=== PATIENT | male | born 1955 | race Caucasian/White ===

== ENCOUNTER 2020-07-20 10:15 | Outpatient (REF) | payer MEDICARE, OTHER, SELFPAY ==
--- NOTE | 2020-07-20 | US_ITS ---
EXAMINATION: RENAL DOPPLER EXAM CLINICAL INFORMATION: Hyperlipidemia. Chronic kidney disease stage III. COMPARISON: Previous renal ultrasound 06/13/2020 TECHNIQUE: Doppler color and grayscale evaluation of the renal arteries, renal veins and upper abdominal aorta FINDINGS: The abdominal aorta is normal in caliber. Aortic peak systolic velocity is normal measuring 98 cm/s. Renal artery peak systolic velocity measures 196 cm/s proximally, 145 cm/s the midportion and 79 cm/s distally. Right renal artery to aorta ratio is 2. Resistive indices in the right kidney measure between 0.6 and 0.7. The right renal vein is patent. Left renal artery peak systolic velocity measures 117 cm/s proximally, 242 cm/s the midportion and 131 cm/s distally. Left renal artery to aorta ratio is 2.5. Resistive indices in the left kidney measure 0.7. The left renal vein is patent. There are left renal peripelvic cysts. IMPRESSION: Elevated bilateral renal artery peak systolic velocities suggestive of less than 60% renal artery stenosis, left greater than right.
== END 2020-07-20 10:16 | disposition home or self-care (01) ==
LOC: HO.US 10:15
PROVIDERS: PCP Internal Medicine Nephrology; Visit Provider Internal Medicine Nephrology
DX: E78.5 Hyperlipidemia, unspecified (principal); N18.30 Chronic kidney disease, stage 3 unspecified
CPT/HCPCS: 93975

== ENCOUNTER 2020-11-27 09:32 | Outpatient (REF) | payer MEDICARE, OTHER, SELFPAY ==
[2020-11-27 09:59] LABS: MANUAL DIFF FLAG NO
[2020-11-27 10:01] LABS: Basophils Absolute Auto 0.1 X10*3/uL (0.0-0.2); Basophils Percent Auto 1.1 % (0-2); Eosinophils Absolute Auto 0.2 X10*3/uL (0.0-0.4); Eosinophils Percent Auto 4.3 % (0-4); Hematocrit 53.3 % (42-52); Hemoglobin 17.5 g/dl (14.0-18.0); Imm Gran Abs Auto 0.02 X10*3/uL (0.00-0.03); Imm Gran Pct Auto 0.4 % (0.0-0.4); Lymphocytes Absolute Auto 1.4 X10*3/uL (1.2-4.9); Lymphocytes Percent Auto 26.9 % (20-40); Mean Corpuscular HGB Conc 32.8 g/dl (31.0-36.0); Mean Corpuscular Volume 91.4 fL (80-98); Mean Platelet Volume 10.1 fL (9.4-12.4); Monocytes Absolute Auto 0.6 X10*3/uL (0.1-1.2); Monocytes Percent Auto 10.9 % (2-11); Neutrophils Percent Auto 56.4 % (45-73); Platelet Count 173 X10*3/uL (160-400); Red Blood Count 5.83 X10*6/uL (4.60-5.80); Red Cell Distribution Width 12.2 % (11.0-16.0); White Blood Count 5.3 X10*3/uL (4.8-10.8)
[2020-11-27 10:24] LABS: Alanine Aminotransferase 26 U/L (0-40); Albumin Level 4.3 g/dL (3.5-5.0); Alkaline Phosphatase 59 U/L (39-117); Anion Gap 11 (12-20); Aspartate Amino Transferase 22 U/L (5-37); Bilirubin Total 1.4 mg/dL (0.0-1.0); Blood Urea Nitrogen 25 mg/dL (9-16); Calcium 9.3 mg/dL (8.4-10.2); Carbon Dioxide 32 mmol/L (22-29); Chloride 103 mmol/L (96-108); Cholesterol 148 mg/dL; Estimated Glomerular Filt Rate 48; Glucose Fasting 104 mg/dL (60-99); HDL Cholesterol 56 mg/dL; LDL Cholesterol Calculated 78 mg/dl; Potassium 4.5 mmol/L (3.3-5.1); Sodium 141 mmol/L (135-145); Total Protein 6.5 g/dL (6.5-8.0); Triglycerides 72 mg/dL
[2020-11-27 10:45] LABS: Thyroid Stimulating Hormone 4.06 uIU/mL (0.32-4.0)
== END 2020-11-27 09:33 | disposition home or self-care (01) ==
LOC: HO.LAB 09:32
PROVIDERS: PCP Internal Medicine; Visit Provider Internal Medicine
DX: Z00.00 Encounter for general adult medical examination without abnormal findings (principal); E11.9 Type 2 diabetes mellitus without complications; E03.9 Hypothyroidism, unspecified
CPT/HCPCS: 36415; 80053; 80061; 84443; 85025

== ENCOUNTER 2021-05-23 11:11 | Outpatient (REF) | payer MEDICARE, OTHER, SELFPAY ==
[2021-05-23 12:09] LABS: Cholesterol 121 mg/dL; Glucose Fasting 100 mg/dL (60-99); HDL Cholesterol 49 mg/dL; LDL Cholesterol Calculated 63 mg/dl; Triglycerides 48 mg/dL
[2021-05-23 12:43] LABS: Estimated Average Glucose 120 mg/dL; Hemoglobin A1c % 5.8 %
== END 2021-05-23 11:12 | disposition home or self-care (01) ==
LOC: HO.LAB 11:11
PROVIDERS: PCP Internal Medicine; Visit Provider Internal Medicine
DX: E11.65 Type 2 diabetes mellitus with hyperglycemia (principal)
CPT/HCPCS: 36415; 80061; 82947; 83036

== ENCOUNTER 2021-11-23 11:05 | Outpatient (REF) | payer MEDICARE, OTHER, SELFPAY ==
[2021-11-23 11:36] LABS: MANUAL DIFF FLAG NO
[2021-11-23 12:04] LABS: Basophils Absolute Auto 0.1 X10*3/uL (0.0-0.2); Basophils Percent Auto 1.2 % (0-2); Eosinophils Absolute Auto 0.3 X10*3/uL (0.0-0.4); Eosinophils Percent Auto 5.1 % (0-4); Hematocrit 51.1 % (42.0-52.0); Hemoglobin 16.9 g/dl (14.0-18.0); Imm Gran Abs Auto 0.02 X10*3/uL (0.00-0.03); Imm Gran Pct Auto 0.3 % (0.0-0.4); Lymphocytes Absolute Auto 1.3 X10*3/uL (1.2-4.9); Lymphocytes Percent Auto 22.1 % (20-40); Mean Corpuscular HGB Conc 33.1 g/dl (31.0-36.0); Mean Corpuscular Volume 90.6 fL (80.0-98.0); Mean Platelet Volume 10.2 fL (9.4-12.4); Monocytes Absolute Auto 0.6 X10*3/uL (0.1-1.2); Monocytes Percent Auto 10.4 % (2-11); Neutrophils Absolute Auto 3.7 x10*3/uL (2.0-8.3); Neutrophils Percent Auto 60.9 % (45-73); Platelet Count 162 X10*3/uL (160-400); Red Blood Count 5.64 X10*6/uL (4.60-5.80); Red Cell Distribution Width 12.4 % (11.0-16.0); White Blood Count 6.1 X10*3/uL (4.8-10.8)
[2021-11-23 12:34] LABS: Alanine Aminotransferase 26 U/L (0-40); Albumin Level 4.2 g/dL (3.5-5.0); Alkaline Phosphatase 67 U/L (39-117); Anion Gap 10 (12-20); Aspartate Amino Transferase 20 U/L (5-37); Bilirubin Total 1.2 mg/dL (0.0-1.0); Blood Urea Nitrogen 21 mg/dL (9-16); Calcium 9.7 mg/dL (8.4-10.2); Carbon Dioxide 30 mmol/L (22-29); Chloride 103 mmol/L (96-108); Cholesterol 152 mg/dL; Estimated Glomerular Filt Rate 47; Glucose Fasting 96 mg/dL (60-99); HDL Cholesterol 46 mg/dL; LDL Cholesterol Calculated 90 mg/dl; Potassium 4.4 mmol/L (3.3-5.1); Sodium 139 mmol/L (135-145); Total Protein 6.5 g/dL (6.5-8.0); Triglycerides 83 mg/dL
[2021-11-23 12:58] LABS: Prostate Specific Antigen Scr 3.96 ng/mL (<0.05-4.0)
== END 2021-11-23 11:06 | disposition home or self-care (01) ==
LOC: HO.LAB 11:05
PROVIDERS: PCP Internal Medicine; Visit Provider Internal Medicine
DX: Z00.00 Encounter for general adult medical examination without abnormal findings (principal); Z13.0 Encounter for screening for diseases of the blood and blood-forming organs and certain disorders involving the immune mechanism; Z12.5 Encounter for screening for malignant neoplasm of prostate
CPT/HCPCS: 36415; 80053; 80061; 84153; 85025

== ENCOUNTER 2022-05-13 10:07 | Outpatient (REF) | payer MEDICARE, OTHER, SELFPAY ==
[2022-05-13 10:24] LABS: MANUAL DIFF FLAG NO
[2022-05-13 11:00] LABS: Basophils Absolute Auto 0.1 X10*3/uL (0.0-0.2); Basophils Percent Auto 1.2 % (0-2); Eosinophils Absolute Auto 0.3 X10*3/uL (0.0-0.4); Eosinophils Percent Auto 5.3 % (0-4); Hematocrit 49.2 % (42.0-52.0); Hemoglobin 16.4 g/dl (14.0-18.0); Imm Gran Abs Auto 0.01 X10*3/uL (0.00-0.03); Imm Gran Pct Auto 0.2 % (0.0-0.4); Lymphocytes Absolute Auto 1.2 X10*3/uL (1.2-4.9); Lymphocytes Percent Auto 24.1 % (20-40); Mean Corpuscular HGB Conc 33.3 g/dl (31.0-36.0); Mean Corpuscular Hemoglobin 30.3 pg (27.0-33.0); Mean Corpuscular Volume 90.9 fL (80.0-98.0); Mean Platelet Volume 10.2 fL (9.4-12.4); Monocytes Absolute Auto 0.5 X10*3/uL (0.1-1.2); Monocytes Percent Auto 10.2 % (2-11); Neutrophils Absolute Auto 2.9 x10*3/uL (2.0-8.3); Platelet Count 150 X10*3/uL (160-400); Red Blood Count 5.41 X10*6/uL (4.60-5.80); Red Cell Distribution Width 12.5 % (11.0-16.0); White Blood Count 4.9 X10*3/uL (4.8-10.8)
[2022-05-13 11:37] LABS: Alanine Aminotransferase 20 U/L (0-40); Albumin Level 4.1 g/dL (3.5-5.0); Alkaline Phosphatase 57 U/L (39-117); Anion Gap 12 (12-20); Aspartate Amino Transferase 20 U/L (5-37); Bilirubin Total 1.6 mg/dL (0.0-1.0); Blood Urea Nitrogen 23 mg/dL (9-16); Calcium 8.8 mg/dL (8.4-10.2); Carbon Dioxide 28 mmol/L (22-29); Chloride 105 mmol/L (96-108); Cholesterol 122 mg/dL; Estimated Glomerular Filt Rate 46; Glucose Fasting 91 mg/dL (60-99); HDL Cholesterol 51 mg/dL; LDL Cholesterol Calculated 62 mg/dl; Potassium 4.2 mmol/L (3.3-5.1); Sodium 141 mmol/L (135-145); Total Protein 6.1 g/dL (6.5-8.0); Triglycerides 46 mg/dL
== END 2022-05-13 10:08 | disposition home or self-care (01) ==
LOC: HO.LAB 10:07
PROVIDERS: PCP Internal Medicine; Visit Provider Internal Medicine
DX: Z00.00 Encounter for general adult medical examination without abnormal findings (principal); Z13.0 Encounter for screening for diseases of the blood and blood-forming organs and certain disorders involving the immune mechanism; Z12.5 Encounter for screening for malignant neoplasm of prostate; E78.5 Hyperlipidemia, unspecified; I10 Essential (primary) hypertension
CPT/HCPCS: 36415; 80053; 80061; 84153; 85025

== ENCOUNTER 2022-05-17 10:55 | Outpatient (REF) | payer MEDICARE, OTHER, SELFPAY ==
[2022-05-17 13:10] LABS: Prostate Specific Antigen Scr 4.13 ng/mL (<0.05-4.0)
== END 2022-05-17 10:56 | disposition home or self-care (01) ==
LOC: HO.LAB 10:55
PROVIDERS: PCP Internal Medicine; Visit Provider Internal Medicine
DX: Z12.5 Encounter for screening for malignant neoplasm of prostate (principal)
CPT/HCPCS: 36415; 84153

== ENCOUNTER 2022-06-13 11:40 | Outpatient (REF) | payer MEDICARE, OTHER, SELFPAY ==
--- NOTE | ~2022-06-13 | XR_ITS ---
EXAMINATION: XR CHEST CLINICAL INFORMATION: Cough. COMPARISON: None TECHNIQUE: 2 views of the chest were obtained. FINDINGS: No significant abnormality is noted involving the heart, lungs, mediastinum, bony thorax or soft tissues. XR/XR chest 2V IMPRESSION: No acute cardiopulmonary process.
== END 2022-06-13 11:41 | disposition home or self-care (01) ==
LOC: HO.HMGCX 11:40
PROVIDERS: PCP Internal Medicine
DX: R05.9 Cough, unspecified (principal)
CPT/HCPCS: 71046

== ENCOUNTER 2022-10-16 14:03 | Outpatient (REF) | payer MEDICARE, OTHER, SELFPAY ==
[2022-10-16 15:53] LABS: Urine Cytology See Pathology rpt
[2022-10-16 16:47] LABS: PSA,Total (Free>4and<10) 4.83 ng/mL (0.00-4.00); Prostate Specific Antigen 4.79 ng/mL (<0.05-4.0)
[2022-10-17 11:34] LABS: Free Prostate Spec Ag 1.1 ng/mL; Percent Free Prostate Spec Ag 24 % (calc) (>25); Prostate Specific Ag Total 4.6 ng/mL (< OR = 4.0)
== END 2022-10-16 14:04 | disposition home or self-care (01) ==
LOC: HO.LAB 14:03
PROVIDERS: PCP Internal Medicine; Visit Provider Nurse Practitioner Family
DX: R97.20 Elevated prostate specific antigen [PSA] (principal); N40.0 Benign prostatic hyperplasia without lower urinary tract symptoms; R35.1 Nocturia; Z79.899 Other long term (current) drug therapy; Z12.5 Encounter for screening for malignant neoplasm of prostate
CPT/HCPCS: 36415; 84153; 84154; 88112; 99202

== ENCOUNTER 2022-10-25 07:05 | Day surgery (SDC) | payer MEDICARE, OTHER, SELFPAY ==
--- NOTE | 2022-10-24 10:20 | HO.ANESPROP2 ---
Documented by User: Cynthia Ling NP 10/24/22 10:24 HPI - Anesthesia Eval Consult details Narrative: 67yo M for Colonoscopy PMFSH Active Problems Active Problems: All Active Problems (Updated 10/24/22 @ 06:26 by Miriam Leon RN) Elevated PSA (Acute) Discomfort of right ear (Acute) Nocturia (Acute) BPH (benign prostatic hyperplasia) (Acute) Hyperlipidemia (Acute) Past Medical History Medical History (Updated 10/24/22 @ 06:26 by Miriam Leon RN) BPH (benign prostatic hyperplasia) Elevated PSA GERD (gastroesophageal reflux disease) Hx of chronic kidney disease Hyperlipidemia Family History Family History Mother Acute arthritis Father No problems noted. Surgical History Surgical History (Updated 10/24/22 @ 06:26 by Miriam Leon RN) History of hernia surgery History of left knee replacement Hx of colonoscopy Hx of esophagogastroduodenoscopy Social History Social History Housing: House Alcohol intake: current Alcohol intake frequency: a few times a week Alcohol type: beer Patient Tobacco Use Status: Never used Tobacco e-Cigarette/Vaping Use: Never Used Second Hand Smoke Exposure: No Use of substances other than those prescribed or required for medical reasons: No Are you DNR?: No Advance Directives: No Advance Directives Information Provided: Yes service: No Current occupational status: retired Cognitive needs: No Hearing needs: No Vision needs: No Meds Allergies Allergy/AdvReac Type Severity Reaction Status Date / Time No Known Allergies Allergy Verified 10/16/22 17:26 Exam Exam Date and Time: October 24, 2022 1020 Pertinent Lab Results Pertinent Lab Results: Laboratory Tests 05/13/22 05/13/22 10:22 10:22 WBC 4.9 Hgb 16.4 Hct 49.2 Plt Count 150 L Sodium 141 Potassium 4.2 Chloride 105 Carbon Dioxide 28 BUN 23 H Creatinine 1.51 H Documented by User: Keri Dumont MD 10/25/22 07:50 PMFSH Past Medical History Medical History (Updated 10/24/22 @ 06:26 by Miriam Leon, RN) BPH (benign prostatic hyperplasia) Elevated PSA GERD (gastroesophageal reflux disease) Hx of chronic kidney disease Hyperlipidemia Family History Family History Mother Acute arthritis Father No problems noted. Family history of problems with anesthesia: No Surgical History Surgical History (Updated 10/24/22 @ 06:26 by Miriam Leon RN) History of hernia surgery History of left knee replacement Hx of colonoscopy Hx of esophagogastroduodenoscopy History of Problems with Anesthesia: No Social History Social History Housing: House Alcohol intake: current Alcohol intake frequency: a few times a week Alcohol type: beer Patient Tobacco Use Status: Never used Tobacco e-Cigarette/Vaping Use: Never Used Second Hand Smoke Exposure: No Use of substances other than those prescribed or required for medical reasons: No Are you DNR?: No Advance Directives: No Advance Directives Information Provided: Yes service: No Current occupational status: retired Cognitive needs: No Hearing needs: No Vision needs: No Meds Allergies Allergy/AdvReac Type Severity Reaction Status Date / Time No Known Allergies Allergy Verified 10/16/22 17:26 Exam Airway Mallampati Class: II TM Dist: >3cm Neck ROM: Full Heart: rrr Lungs: cta Assessment and Plan Assessment Anesthesia Assessment: Anesthesia Plan Discussed and Chart Reviewed Final Anesthetic Review Family History of Problems with Anesthesia: No History of Problems with Anesthesia: No NPO: Yes ASA Class: II Final Preanesthetic Review: No Changes in Pt Med Stat, Meds/Allgs Chart Reviewed, Consent Obtained/Reviewed and Anes Risks/Benef Reviewed Patient Risk: Low Procedure Risk: Low Anesthetic Plan Anesthetic Plan: MAC: and Agree w/ Assess. and Plan Disposition: Standard PACU
[2022-10-25 07:27] VITALS: BP 129/84; PULSE 58; RESP 18; TEMP 36.1; O2SAT 99; BMI 23.4
[2022-10-25] MEDS: Lactated Ringers 1,000 ML 100 ML IVCONT (07:48)
--- NOTE | 2022-10-25 08:10 | MHC.SHP ---
Pre-Procedural Eval Section A Date of Service: 10/25/22 Section B Chief Complaint: screening Details of Present Illness: see H*P no changes Relevant Family History (Specify if Yes): No Relevant Social History: None Present Medications: see Short Stay Collaborative assessment Medical History: No relevant PMH History of Previous Operations: No relevant previous surgery Allergies: Allergies Allergy/AdvReac Type Severity Reaction Status Date / Time No Known Allergies Allergy Verified 10/16/22 17:26 Review of Systems Sugical H&P ROS: Negative: Constitution, Cardiovascular, Respiratory, Neurological, Psychiatric, Hem-Onc, Allergic/Immunologic, Gastrointestinal, Genitourinary, Musculoskeletal, Integumentary, Endocrine and Eyes/Ears/Nose/Throat Exam Surgical H&P Exam: Normal: HEENT, Normal: Heart, Normal: Lungs, Normal: Extremities, Normal: Abdomen, Normal: Skin and Normal: Neurological Plan Diagnosis/Plan: Unchanged I have reviewed the history and physical and performed a pertinent physical examination on my patient. No changes have occurred unless specified. Time Spent With Patient Time: Total time managing care of this patient today ____ minutes.
[2022-10-25 08:38] VITALS: BP 93/58; PULSE 56; RESP 16; TEMP 36.8; O2SAT 95
--- NOTE | 2022-10-25 08:38 | PM.OP ---
Brief Operative Note Date of Service: 10/25/22 Pre-op diagnosis: screening Post-op diagnosis: same Procedure: colonoscopy Surgeon: Tae Art Anesthesia: MAC Was an Popped Corn Oven Attendant used for this Procedure?: No Estimated blood loss (mL): 0 Pathology: none sent Condition: stable Disposition: PACU
[2022-10-25 08:53] VITALS: BP 122/92; PULSE 57; RESP 16; TEMP 36.8; O2SAT 96
--- NOTE | 2022-10-25 08:58 | OP_ITS ---
SURGEON: Tae Art MD INDICATIONS: Colon cancer screening and prior history of adenomatous colon polyps. PREOPERATIVE DIAGNOSIS: POSTOPERATIVE DIAGNOSIS: PROCEDURE PERFORMED: Colonoscopy to the terminal ileum. ESTIMATED BLOOD LOSS: COMPLICATIONS: ANESTHESIA: Monitored anesthesia care. ASSISTANTS: SPECIMENS: DESCRIPTION OF PROCEDURE: Date: 10/25/22. A history and physical were performed. The risks and benefits of the procedure were explained to the patient. Informed consent was obtained. The patient was placed in the left lateral decubitus position. A digital rectal exam was performed and was found to be normal. The Olympus pediatric video colonoscope was introduced into the rectum and advanced to the cecum without difficulty. The cecum was identified by transillumination, palpation, and identification of ileocecal valve. Examination was performed. The scope was removed. He tolerated the procedure well and was taken to recovery in stable condition. FINDINGS: The terminal ileum was normal. Visualized colonic mucosa was normal. The quality of the prep was good. No polyps were identified. There was mild sigmoid diverticulosis. Retroflexed examination showed small internal hemorrhoids. IMPRESSION: Normal colonoscopy. RECOMMENDATIONS: 1. Follow up as needed. 2. Repeat colonoscopy is recommended in 10 years for average risk individuals. MD LINDA Fan/RYAN / [phone] MTDTomasa
== END 2022-10-25 10:00 | disposition home or self-care (01) ==
PROVIDERS: PCP Internal Medicine; Visit Provider Internal Medicine Gastroenterology
PROC: 0DJD8ZZ Inspection of Lower Intestinal Tract, Via Natural or Artificial Opening Endoscopic (ICD-10-PCS; CPT 45378; principal; 2022-10-25 08:10)
DX: Z12.11 Encounter for screening for malignant neoplasm of colon (principal); Z86.010 Personal history of colon polyps; K57.30 Diverticulosis of large intestine without perforation or abscess without bleeding; K64.8 Other hemorrhoids; K22.2 Esophageal obstruction; K21.9 Gastro-esophageal reflux disease without esophagitis; N18.9 Chronic kidney disease, unspecified; E78.00 Pure hypercholesterolemia, unspecified; R97.20 Elevated prostate specific antigen [PSA]; Z79.899 Other long term (current) drug therapy
CPT/HCPCS: G0105

== ENCOUNTER 2022-11-18 10:10 | Outpatient (REF) | payer MEDICARE, OTHER, SELFPAY ==
[2022-11-18 10:22] LABS: MANUAL DIFF FLAG NO
[2022-11-18 11:42] LABS: Basophils Absolute Auto 0.1 X10*3/uL (0.0-0.2); Basophils Percent Auto 1.4 % (0-2); Eosinophils Absolute Auto 0.3 X10*3/uL (0.0-0.4); Eosinophils Percent Auto 4.4 % (0-4); Hematocrit 50.6 % (42.0-52.0); Hemoglobin 16.7 g/dl (14.0-18.0); Imm Gran Abs Auto 0.03 X10*3/uL (0.00-0.03); Imm Gran Pct Auto 0.5 % (0.0-0.4); Lymphocytes Absolute Auto 1.2 X10*3/uL (1.2-4.9); Lymphocytes Percent Auto 21.8 % (20-40); Mean Corpuscular Hemoglobin 30.1 pg (27.0-33.0); Mean Corpuscular Volume 91.2 fL (80.0-98.0); Mean Platelet Volume 10.4 fL (9.4-12.4); Monocytes Absolute Auto 0.6 X10*3/uL (0.1-1.2); Monocytes Percent Auto 10.7 % (2-11); Neutrophils Absolute Auto 3.5 x10*3/uL (2.0-8.3); Neutrophils Percent Auto 61.2 % (45-73); Platelet Count 148 X10*3/uL (160-400); Red Blood Count 5.55 X10*6/uL (4.60-5.80); Red Cell Distribution Width 12.1 % (11.0-16.0); White Blood Count 5.7 X10*3/uL (4.8-10.8)
[2022-11-18 12:25] LABS: Alanine Aminotransferase 32 U/L (0-40); Albumin Level 4.1 g/dL (3.5-5.0); Alkaline Phosphatase 77 U/L (39-117); Anion Gap 14 (12-20); Aspartate Amino Transferase 26 U/L (5-37); Bilirubin Total 0.9 mg/dL (0.0-1.0); Blood Urea Nitrogen 20 mg/dL (9-16); Calcium 9.3 mg/dL (8.4-10.2); Carbon Dioxide 28 mmol/L (22-29); Chloride 104 mmol/L (96-108); Cholesterol 151 mg/dL; Estimated Glomerular Filt Rate 48; Glucose Fasting 102 mg/dL (60-99); HDL Cholesterol 55 mg/dL; LDL Cholesterol Calculated 84 mg/dl; Potassium 4.6 mmol/L (3.3-5.1); Sodium 141 mmol/L (135-145); Triglycerides 63 mg/dL
== END 2022-11-18 10:11 | disposition home or self-care (01) ==
LOC: HO.LAB 10:10
PROVIDERS: PCP Internal Medicine; Visit Provider Internal Medicine
DX: E78.5 Hyperlipidemia, unspecified (principal); N28.9 Disorder of kidney and ureter, unspecified; D64.9 Anemia, unspecified
CPT/HCPCS: 36415; 80053; 80061; 85025

== ENCOUNTER 2022-12-23 17:17 | Outpatient (REF) | payer MEDICARE, OTHER, SELFPAY ==
[2022-12-24 13:40] LABS: Influenza A PCR NEGATIVE (Negative); Influenza B PCR NEGATIVE (Negative); Resp Syncy Virus RNA Qual PCR NEGATIVE (Negative); SARS COV2 PCR INHOUSE NEGATIVE (Negative)
== END 2022-12-23 17:18 | disposition home or self-care (01) ==
LOC: HO.LAB 17:17
PROVIDERS: Visit Provider Nurse Practitioner Family
DX: J06.9 Acute upper respiratory infection, unspecified (principal); Z20.822 Contact with and (suspected) exposure to COVID-19
CPT/HCPCS: 0241U

== ENCOUNTER 2023-01-31 09:52 | Outpatient (REF) | payer MEDICARE, OTHER, SELFPAY ==
--- NOTE | ~2023-01-31 | US_ITS ---
EXAMINATION: US RETROPERITONEAL COMPLETE (RENAL) CLINICAL INFORMATION: Elevated prostate-specific antigen. COMPARISON: Renal Doppler ultrasound 07/20/2020. Renal ultrasound 06/13/2020. TECHNIQUE: Real-time imaging of the kidneys and bladder. FINDINGS: RIGHT KIDNEY: 10.2 x 4.3 x 5.8 cm (SAG x AP x TRV). The kidney is normal in size, contour, and echogenicity. Renal cortical thickness is normal. No renal calculi or hydronephrosis. Benign-appearing 6 mm simple cysts no follow-up imaging recommended. LEFT KIDNEY: 11.3 x 5.8 x 6.4 cm (SAG x AP x TRV). The kidney is normal in size, contour, and echogenicity. Renal cortical thickness is normal. No renal calculi or focal parenchymal lesions. Similar appearance of fullness of the left renal pelvis favored to reflect peripelvic renal cysts, not significantly changed, no routine follow up imaging recommended. BLADDER: Possibly minimally trabeculated urinary bladder. Bilateral ureteral jets are demonstrated. Prevoid bladder volume is 248 mL. Postvoid bladder volume is 22 mL. Enlarged prostate, volume 40 mL. US/US retroperitoneal comp IMPRESSION: 1. Possibly minimally trabeculated urinary bladder. 2. Prostatomegaly. 3. Similar appearance of fullness of the left renal pelvis favored to reflect peripelvic renal cysts, not significantly changed, no routine follow up imaging recommended.
== END 2023-01-31 09:53 | disposition home or self-care (01) ==
LOC: HO.US 09:52
PROVIDERS: PCP Internal Medicine; Visit Provider Nurse Practitioner Family
DX: R97.20 Elevated prostate specific antigen [PSA] (principal); N40.0 Benign prostatic hyperplasia without lower urinary tract symptoms; R35.1 Nocturia
CPT/HCPCS: 76770

== ENCOUNTER 2023-02-14 10:32 | Outpatient (AMB) | payer MEDICARE, OTHER, SELFPAY ==
--- NOTE | 2023-02-14 10:41 | A.OFFVIS_ITS ---
Intake Intake Visit Reasons: follow up/US(set) Intake Note: Patient is present for Follow Up Ultrasound Urology Med: Finasteride Antibiotic Allergy: None Blood Thinner: None Allergies No Known Allergies Allergy (Verified 06/18/23 09:21) Medication List - Last Reconciled 02/14/23 by Parth Nova MD dextromethorphan HBr 20 mg (15 mL) PO TID PRN 5 days famotidine (Pepcid) 20 mg PO DAILY finasteride 5 mg PO BEDTIME 90 days rosuvastatin 10 mg PO BEDTIME sodium fluoride-pot nitrate 1.1-5 % PO Q3D HPI HPI Comments History of Present Illness Details Michael is a pleasant male.? He is a patient of Dr. Escudero.? He seen for the following urologic conditions - elevated PSA Is being placed on finasteride for mild prostate elevation large prostate And concerns regarding medications These were addressed today To be seen in a couple months for review Elevated PSA Slow rise Discussed risk of prostate cancer No reported family history - father had enlarged prostate Willing to trial finasteride 12/04 4.0, 06/03 4.6, 11/04 4.6 24%, 05/04 2.9 Imaging 40 g prostate PFSH Medical History BPH (benign prostatic hyperplasia) Elevated PSA GERD (gastroesophageal reflux disease) Hx of chronic kidney disease Hyperlipidemia Surgical History History of hernia surgery History of left knee replacement Hx of colonoscopy Hx of esophagogastroduodenoscopy Family History Mother Acute arthritis Father No problems noted. Social History Housing: House Alcohol intake: current Alcohol intake frequency: a few times a week Alcohol type: beer Patient Tobacco Use Status: Never used Tobacco e-Cigarette/Vaping Use: Never Used Second Hand Smoke Exposure: No service: No Current occupational status: retired Cognitive needs: No Hearing needs: No Vision needs: No Review of Systems Const Denies chills and Denies fever(s) Card Reports no additional complaints and Denies syncope Resp Denies cough GI Denies abdominal pain and Denies heartburn Reports as per HPI and Denies change in libido Neuro Denies syncope Psych Denies change in libido Endo Denies change in libido Physical Exam Const General: cooperative, healthy appearing, comfortable and no acute distress Orientation/consciousness: patient oriented x3 HEENT Face and sinus: Yes normal facial exam Mouth: moist mucous membranes Neck Neck: Yes normal visual inspection, Yes full ROM and Yes trachea midline Chest Chest palpation & inspection: normal inspection of the chest Resp Effort & Inspection: normal respiratory effort, able to speak in complete sentences and no respiratory distress GI Inspection: Yes normal to inspection Back/Spine/Pelvis Cervical Spine: normal cervical lordosis Thoracic/Lumbar Spine: thoracic and lumbar spine normal to inspection Skin General skin exam: no rashes or lesions noted Neuro General: patient oriented x3, gait normal, tone normal and moves all extremities Extrem General: Yes normal to inspection and Yes capillary refill normal Assessment & Plan Assessment & Plan (1) Elevated PSA: Code(s): R97.20 - Elevated prostate specific antigen [PSA] Plan Two month follow-up PSA Orders: Orders PSA,Total (Free>4and<10) 2 Months R97.20 - Elevated prostate specific antigen [PSA] Patient Instructions: Imaging studies, laboratory and physical exam results were discussed and reviewed in detail. No major barriers to patient understanding were identified. An opportunity to ask questions regarding the treatment plan was provided. All questions were answered. The patient expressed understanding and agreement with the above treatment plan. The patient is aware they should contact our office by phone for worsening of their current condition or the appearance of new urologic symptoms. Compliance is encouraged with any medications and followup testing that is ordered. It is a privilege to participate in the urologic care of your patient. If you have any questions or concerns regarding treatment for the above conditions, or other urologic issues, please do not hesitate to contact me. The office telephone contact is [phone]. This note is constructed using voice recognition software. While every effort has been made to ensure accuracy rim technician errors may have been included. Yours sincerely, Dr Parth Nova MD, [facility] - Urology Providers of Expert, Compassionate Care for the Genitourinary System Coding Level of Care Code Est Pt Level 3 (01281) Diagnoses Elevated PSA R97.20
== END 2023-02-14 11:21 | disposition home or self-care (01) ==
LOC: HO.HUSH 10:32
PROVIDERS: PCP Internal Medicine; Visit Provider Urology
DX: R97.20 Elevated prostate specific antigen [PSA] (principal)
CPT/HCPCS: 99213

== ENCOUNTER → 2023-02-14 10:32 | Outpatient (BNVA) | payer MEDICARE, OTHER, SELFPAY | PROVIDERS: PCP Internal Medicine; Visit Provider Urology | DX: R97.20 Elevated prostate specific antigen [PSA] (principal) | CPT/HCPCS: 99212 ==

== ENCOUNTER 2023-04-22 09:45 | Outpatient (REF) | payer MEDICARE, OTHER, SELFPAY ==
[2023-04-22 11:22] LABS: PSA,Total (Free>4and<10) 2.85 ng/mL (0.00-4.00)
== END 2023-04-22 09:46 | disposition home or self-care (01) ==
LOC: HO.LAB 09:45
PROVIDERS: Visit Provider Urology
DX: R97.20 Elevated prostate specific antigen [PSA] (principal); Z12.5 Encounter for screening for malignant neoplasm of prostate
CPT/HCPCS: 36415; 84153

== ENCOUNTER 2023-04-29 11:35 | Outpatient (AMB) | payer MEDICARE, OTHER, SELFPAY ==
--- NOTE | 2023-04-29 11:35 | A.OFFVIS_ITS ---
Intake Intake Visit Reasons: 2M PSA(set) Intake Note: Patient is present for Telephone PSA Urology Med: Finasteride Antibiotic Allergy: None Blood Thinner: None Allergies No Known Allergies Allergy (Verified 04/29/23 11:35) Medication List - Last Reconciled 04/29/23 by Parth Nova MD dextromethorphan HBr 20 mg (15 mL) PO TID PRN 5 days famotidine (Pepcid) 20 mg PO DAILY finasteride 5 mg PO BEDTIME 90 days rosuvastatin 10 mg PO BEDTIME sodium fluoride-pot nitrate 1.1-5 % PO Q3D HPI HPI Comments History of Present Illness Details Michael is a pleasant male. He is a patient of Dr. Escudero. He seen for the following urologic conditions - elevated PSA Telemedicine Evaluation 15 min Consultation [employer] [facility] Video attempted Discussed findings Can cut back finasteride 1/ tab QOD Elevated PSA Slow rise Discussed risk of prostate cancer No reported family history - father had enlarged prostate Willing to trial finasteride 12/04 4.0, 06/03 4.6, 11/04 4.6 24%, 05/04 2.9 Imaging 40 g prostate PFSH Medical History BPH (benign prostatic hyperplasia) Elevated PSA GERD (gastroesophageal reflux disease) Hx of chronic kidney disease Hyperlipidemia Surgical History History of hernia surgery History of left knee replacement Hx of colonoscopy Hx of esophagogastroduodenoscopy Family History Mother Acute arthritis Father No problems noted. Social History Housing: House Alcohol intake: current Alcohol intake frequency: a few times a week Alcohol type: beer Patient Tobacco Use Status: Never used Tobacco e-Cigarette/Vaping Use: Never Used Second Hand Smoke Exposure: No service: No Current occupational status: retired Cognitive needs: No Hearing needs: No Vision needs: No Review of Systems Const All systems reviewed & are unremarkable except as noted in HPI and below Reports no additional complaints Resp Reports no additional complaints GI Reports no additional complaints Reports as per HPI Musc Reports no additional complaints Physical Exam Telemedicine evaluation Appropriate responses Regular breathing rate and rhythm HEENT Head: Yes normal to inspection Ears: hearing grossly normal bilaterally Eyes General: appearance normal, both eyes and all related structures Neck Neck: Yes normal visual inspection Chest Chest palpation & inspection: normal inspection of the chest Resp Effort & Inspection: normal respiratory effort and able to speak in complete sentences Assessment & Plan Assessment & Plan (1) Nocturia: Code(s): R35.1 - Nocturia (2) BPH (benign prostatic hyperplasia): Code(s): N40.0 - Benign prostatic hyperplasia without lower urinary tract symptoms (3) Elevated PSA: Code(s): R97.20 - Elevated prostate specific antigen [PSA] Plan 6m f/u PSA Orders: Orders Prostate Specific Antigen 6 Months N40.0 - Benign prostatic hyperplasia without lower urinary tract symptoms Patient Instructions: Imaging studies, laboratory and physical exam results were discussed and reviewed in detail. No major barriers to patient understanding were identified. An opportunity to ask questions regarding the treatment plan was provided. All questions were answered. The patient expressed understanding and agreement with the above treatment plan. The patient is aware they should contact our office by phone for worsening of their current condition or the appearance of new urologic symptoms. Compliance is encouraged with any medications and followup testing that is ordered. It is a privilege to participate in the urologic care of your patient. If you have any questions or concerns regarding treatment for the above conditions, or other urologic issues, please do not hesitate to contact me. The office telephone contact is [phone]. This note is constructed using voice recognition software. While every effort has been made to ensure accuracy senior product marketing manager errors may have been included. Yours sincerely, Dr Parth Nova MD, [facility] - Urology Providers of Expert, Compassionate Care for the Genitourinary System Telehealth Telehealth Location of provider rendering services: practice address Location of patient: address on file Patient Identification confirmed using: Name, : Yes Telehealth method: video Patient verbally consented to treatment: Yes Patient verbally consented to billing insurance company: Yes Patient informed of any privacy concerns related to visit: Yes Coding Level of Care Code Tele Est Pt Level 3 (78411) Diagnoses Nocturia R35.1 BPH (benign prostatic hyperplasia) N40.0 Elevated PSA R97.20
== END 2023-04-29 11:58 | disposition home or self-care (01) ==
LOC: HO.HUSH 11:35
PROVIDERS: PCP Internal Medicine; Visit Provider Urology
DX: R35.1 Nocturia (principal); N40.0 Benign prostatic hyperplasia without lower urinary tract symptoms; R97.20 Elevated prostate specific antigen [PSA]
CPT/HCPCS: 99213

== ENCOUNTER → 2023-04-29 11:35 | Outpatient (BNVA) | payer MEDICARE, OTHER, SELFPAY | PROVIDERS: PCP Internal Medicine; Visit Provider Urology | DX: N40.1 Benign prostatic hyperplasia with lower urinary tract symptoms (principal); R35.1 Nocturia; R97.20 Elevated prostate specific antigen [PSA] | CPT/HCPCS: Q3014 ==

== ENCOUNTER 2023-06-18 09:19 | Outpatient (AMB) | payer MEDICARE, OTHER, SELFPAY ==
[2023-06-18 09:20] VITALS: BP 132/82; PULSE 64; O2SAT 98; BMI 23.5
--- NOTE | 2023-06-18 09:20 | MHC.PC.OV ---
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 Accompanied by: Self / Same As Patient Allergies No Known Allergies Allergy (Verified 06/18/23 09:21) Medication List - Last Reconciled 06/18/23 by Hernesto Escudero MD dextromethorphan HBr 20 mg (15 mL) PO TID PRN 5 days famotidine (Pepcid) 20 mg PO DAILY finasteride 5 mg PO BEDTIME 90 days rosuvastatin 10 mg PO BEDTIME sodium fluoride-pot nitrate 1.1-5 % PO Q3D Tobacco use date assessed: 11/18/22 Fall risk assessment: No Falls in past year Last assessed Fall Risk: 06/18/23 Dental Screening Dental Screen Date: 06/18/23 Did you have a dental visit in the last 12 months?: Yes Did you have a dental problem in the last 6 months where you did not have access to dental care?: No Was dental information given to patient?: Patient has dentist HPI Follow up HPI Details hyperlipidemia on rx; doing well; due for labs [facility] Medical History BPH (benign prostatic hyperplasia) Elevated PSA GERD (gastroesophageal reflux disease) Hx of chronic kidney disease Hyperlipidemia Surgical History History of hernia surgery History of left knee replacement Hx of colonoscopy Hx of esophagogastroduodenoscopy Family History Mother Acute arthritis Father No problems noted. Social History Housing: House Alcohol intake: current Alcohol intake frequency: a few times a week Alcohol type: beer Patient Tobacco Use Status: Never used Tobacco e-Cigarette/Vaping Use: Never Used Second Hand Smoke Exposure: No service: No Current occupational status: retired Cognitive needs: No Hearing needs: No Vision needs: No Questionnaire PHQ-9 Over the last 2 weeks, how often have you been bothered by any of the following problems? 1. Little interest or pleasure in doing things: not at all 2. Feeling down, depressed, or hopeless: not at all 3. Trouble falling or staying asleep, or sleeping too much: not at all 4. Feeling tired or having little energy: not at all 5. Poor appetite or overeating: not at all 6. Feeling bad about yourself - or that you are a failure or have let yourself or your family down: not at all 7. Trouble concentrating on things, such as reading the newspaper or watching television: not at all 8. Moving or speaking so slowly that other people could have noticed. Or the opposite - being so fidgety or restless that you have been moving around a lot more than usual: not at all 9. Thoughts that you would be better off or of hurting yourself in some way: not at all Total score: 0 Depression Screening Interpretation: Negative 27843 - PHQ-9 Billing: Yes Source: Developed by Drs. Doni Mann, Bettina Orellana, Jn Palumbo and colleagues, with an educational gato from [employer]. Thrive Questionnaire Date Thrive assessed: 06/18/23 I am a: Patient What is your living situation today?: I have a steady place to live Within the past 12 months, did the food you bought not last and you didn't have the money to get more?: Never true Within the past 12 months, did you worry whether your food would run out before you got money to buy more?: Never true Do you have trouble paying for medicines?: No Do you have trouble getting transportation to medical appointments?: No Do you have trouble paying your heating and electricity bill?: No Do you have trouble taking care of your child, family member or friend?: No Do you have trouble with day-to-day activities such as bathing, preparing meals, shopping, managing finances, etc.?: No Are you currently unemployed and looking for a job?: No Are you interested in more education?: No AUDIT C Alcohol Use Questionnaire (AUDIT-C) 1. How often do you have a drink containing alcohol?: 2-4 times a month 2. How many drinks containing alcohol do you have on a typical day when you are drinking?: 1 or 2 3. How often do you have six or more drinks on one occasion?: Never Total Score: 2 Score Reviewed/Action Taken: Yes RONALDO-7 AMB Questionnaire RONALDO-7 Date RONALDO - 7 assessed: 11/18/22 Source: Developed by Drs. Doni Mann, Bettina Orellana, Jn Palumbo and colleagues, with an educational gato from [employer]. Review of Systems Const Denies chills, Denies headache(s) and Denies weight loss ENT Denies headache(s) Card Denies chest pain, Denies syncope, Denies irregular heart rhythm and Denies dyspnea Resp Denies chest congestion, Denies cough and Denies dyspnea GI Denies abdominal pain, Denies change in stool character, Denies nausea and Denies vomiting Musc Denies deformity and Denies joint swelling Neuro Denies syncope and Denies headache(s) Physical exam (Primary Care) Vital Signs: Last Vital Signs Pulse 64 06/18/23 09:20 BP 132/82 06/18/23 09:20 Pulse Ox 98 06/18/23 09:20 Oxygen Delivery Method Room Air 06/18/23 09:20 BMI result Body Mass Index 23.5 Tobacco/Smoking Status: Tobacco use Status Tobacco use date assessed 11/18/22 06/18/23 09:27 Patient Tobacco Use Status Never used Tobacco 06/18/23 09:27 e-Cigarette/Vaping Use Never Used 06/18/23 09:27 PHQ-9: PHQ-9 Score PHQ-9: Total score 0 06/18/23 09:27 Depression Screening Interpretation: Negative Thrive Assessment: Date of Thrive Assessment Date Thrive assessed 06/18/23 06/18/23 09:27 Const General: cooperative, comfortable and no acute distress Resp Effort & Inspection: normal respiratory effort Auscultation: clear to auscultation bilaterally Percussion: percussion normal Cardio Jugular venous distension: no JVD Rate: regular rate Rhythm: regular rhythm GI Inspection: Yes normal to inspection Assessment and Plan Assessment & Plan (1) Hyperlipidemia: Code(s): E78.5 - Hyperlipidemia, unspecified Plan: same rx; do labs Orders: Orders Comprehensive [place]. Panel Fast Today N28.9 - Disorder of kidney and ureter, unspecified Lipid Panel Today E78.5 - Hyperlipidemia, unspecified Complete Blood Count Auto Diff Today D64.9 - Anemia, unspecified Coding Level of Care Code Est Pt Level 3 (09388) Diagnoses Hyperlipidemia E78.5
== END 2023-06-18 10:01 | disposition home or self-care (01) ==
PROVIDERS: Visit Provider Internal Medicine
DX: E78.5 Hyperlipidemia, unspecified (principal)
CPT/HCPCS: 99213

== ENCOUNTER 2023-06-18 09:51 | Outpatient (REF) | payer MEDICARE, OTHER, SELFPAY ==
[2023-06-18 09:59] LABS: MANUAL DIFF FLAG NO
[2023-06-18 10:07] LABS: Basophils Absolute Auto 0.1 X10*3/uL (0.0-0.2); Basophils Percent Auto 1.4 % (0-2); Eosinophils Absolute Auto 0.3 X10*3/uL (0.0-0.4); Eosinophils Percent Auto 4.8 % (0-4); Hematocrit 47.8 % (42.0-52.0); Imm Gran Abs Auto 0.01 X10*3/uL (0.00-0.03); Imm Gran Pct Auto 0.2 % (0.0-0.4); Lymphocytes Absolute Auto 1.4 X10*3/uL (1.2-4.9); Lymphocytes Percent Auto 25.4 % (20-40); Mean Corpuscular HGB Conc 33.5 g/dl (31.0-36.0); Mean Corpuscular Hemoglobin 30.6 pg (27.0-33.0); Mean Corpuscular Volume 91.4 fL (80.0-98.0); Mean Platelet Volume 9.8 fL (9.4-12.4); Monocytes Absolute Auto 0.7 X10*3/uL (0.1-1.2); Monocytes Percent Auto 11.5 % (2-11); Neutrophils Absolute Auto 3.2 x10*3/uL (2.0-8.3); Neutrophils Percent Auto 56.7 % (45-73); Platelet Count 158 X10*3/uL (160-400); Red Blood Count 5.23 X10*6/uL (4.60-5.80); Red Cell Distribution Width 12.4 % (11.0-16.0); White Blood Count 5.6 X10*3/uL (4.8-10.8)
[2023-06-18 10:44] LABS: Alanine Aminotransferase 26 U/L (0-40); Albumin Level 4.1 g/dL (3.5-5.0); Alkaline Phosphatase 62 U/L (39-117); Anion Gap 11 (12-20); Aspartate Amino Transferase 24 U/L (5-37); Bilirubin Total 0.9 mg/dL (0.0-1.0); Blood Urea Nitrogen 26 mg/dL (9-16); Calcium 9.4 mg/dL (8.4-10.2); Carbon Dioxide 29 mmol/L (22-29); Chloride 104 mmol/L (96-108); Cholesterol 130 mg/dL (<200); Estimated Glomerular Filt Rate 46; Glucose Fasting 100 mg/dL (60-99); HDL Cholesterol 55 mg/dL (>40); LDL Cholesterol Calculated 66 mg/dL (<100); Potassium 4.1 mmol/L (3.3-5.1); Sodium 140 mmol/L (135-145); Total Protein 6.2 g/dL (6.5-8.0); Triglycerides 47 mg/dL (<150)
== END 2023-06-18 09:52 | disposition home or self-care (01) ==
LOC: HO.LAB 09:51
PROVIDERS: PCP Internal Medicine; Visit Provider Internal Medicine
DX: D64.9 Anemia, unspecified (principal); N28.9 Disorder of kidney and ureter, unspecified; E78.5 Hyperlipidemia, unspecified
CPT/HCPCS: 36415; 80053; 80061; 85025

== ENCOUNTER 2023-10-27 11:08 | Outpatient (REF) | payer MEDICARE, OTHER, SELFPAY ==
[2023-10-27 12:51] LABS: Prostate Specific Antigen 4.21 ng/mL (<0.05-4.0)
== END 2023-10-27 11:09 | disposition home or self-care (01) ==
LOC: HO.LAB 11:08
PROVIDERS: Visit Provider Urology
DX: N40.0 Benign prostatic hyperplasia without lower urinary tract symptoms (principal); Z12.5 Encounter for screening for malignant neoplasm of prostate
CPT/HCPCS: 36415; 84153

== ENCOUNTER 2023-10-28 11:10 | Outpatient (AMB) | payer MEDICARE, OTHER, SELFPAY ==
--- NOTE | 2023-10-28 11:12 | MHC.OFFVIS ---
Intake Intake Visit Reasons: 6M PSA(set)Conf Intake Note: Patient is Present for Follow Up PSA Urology Medication:Finasteride Antibiotic Allergies:None Blood Thinners: None Allergies No Known Allergies Allergy (Verified 06/18/23 09:21) Medication List - Last Reconciled 10/28/23 by Parth Nova MD dextromethorphan HBr 20 mg (15 mL) PO TID PRN 5 days famotidine (Pepcid) 20 mg PO DAILY finasteride 5 mg PO BEDTIME 90 days rosuvastatin 10 mg PO BEDTIME sodium fluoride-pot nitrate 1.1-5 % PO Q3D HPI HPI Comments History of Present Illness Details Michael is a pleasant male. He is a patient of Dr. Escudero. He seen for the following urologic conditions - elevated PSA Partial PSA recovery taking 1/2 tab every other day Would increase back to 1 tab every other day Six-month follow-up Elevated PSA Slow rise Discussed risk of prostate cancer No reported family history - father had enlarged prostate PSA had declined with daily finasteride 12/04 4.0, 06/03 4.6, 11/04 4.6 24%, 05/04 2.9, 11/05 4.2 Imaging 40 g prostate PFSH Medical History BPH (benign prostatic hyperplasia) Elevated PSA GERD (gastroesophageal reflux disease) Hx of chronic kidney disease Hyperlipidemia Surgical History History of hernia surgery History of left knee replacement Hx of colonoscopy Hx of esophagogastroduodenoscopy Family History Mother Acute arthritis Father No problems noted. Social History Housing: House Alcohol intake: current Alcohol intake frequency: a few times a week Alcohol type: beer Patient Tobacco Use Status: Never used Tobacco e-Cigarette/Vaping Use: Never Used Second Hand Smoke Exposure: No service: No Current occupational status: retired Cognitive needs: No Hearing needs: No Vision needs: No Review of Systems Const Denies chills and Denies fever(s) Card Reports no additional complaints and Denies syncope Resp Denies cough GI Denies abdominal pain and Denies heartburn Reports as per HPI and Denies change in libido Neuro Denies syncope Psych Denies change in libido Endo Denies change in libido Physical Exam Const General: cooperative, healthy appearing, comfortable and no acute distress Orientation/consciousness: patient oriented x3 HEENT Face and sinus: Yes normal facial exam Mouth: moist mucous membranes Neck Neck: Yes normal visual inspection, Yes full ROM and Yes trachea midline Chest Chest palpation & inspection: normal inspection of the chest Resp Effort & Inspection: normal respiratory effort, able to speak in complete sentences and no respiratory distress GI Inspection: Yes normal to inspection Back/Spine/Pelvis Cervical Spine: normal cervical lordosis Thoracic/Lumbar Spine: thoracic and lumbar spine normal to inspection Skin General skin exam: no rashes or lesions noted Neuro General: patient oriented x3, gait normal, tone normal and moves all extremities Extrem General: Yes normal to inspection and Yes capillary refill normal Assessment & Plan Assessment & Plan (1) Elevated PSA: Code(s): R97.20 - Elevated prostate specific antigen [PSA] Plan Six-month follow-up PSA Orders: Orders PSA,Total (Free>4and<10) 6 Months R97.20 - Elevated prostate specific antigen [PSA] Patient Instructions: Imaging studies, laboratory and physical exam results were discussed and reviewed in detail. No major barriers to patient understanding were identified. An opportunity to ask questions regarding the treatment plan was provided. All questions were answered. The patient expressed understanding and agreement with the above treatment plan. The patient is aware they should contact our office by phone for worsening of their current condition or the appearance of new urologic symptoms. Compliance is encouraged with any medications and followup testing that is ordered. It is a privilege to participate in the urologic care of your patient. If you have any questions or concerns regarding treatment for the above conditions, or other urologic issues, please do not hesitate to contact me. The office telephone contact is [phone]. This note is constructed using voice recognition software. While every effort has been made to ensure accuracy fire range technician errors may have been included. Yours sincerely, Dr Parth Nova MD, [facility] - Urology Providers of Expert, Compassionate Care for the Genitourinary System Coding Level of Care Code Est Pt Level 4 (57861) Diagnoses Elevated PSA R97.20
== END 2023-10-28 11:33 | disposition home or self-care (01) ==
LOC: HO.HUSH 11:10
PROVIDERS: PCP Internal Medicine; Visit Provider Urology
DX: R97.20 Elevated prostate specific antigen [PSA] (principal)
CPT/HCPCS: 99214

== ENCOUNTER → 2023-10-28 11:10 | Outpatient (BNVA) | payer MEDICARE, OTHER, SELFPAY | PROVIDERS: PCP Internal Medicine; Visit Provider Urology | DX: R97.20 Elevated prostate specific antigen [PSA] (principal) | CPT/HCPCS: 99212 ==

== ENCOUNTER 2023-12-16 09:47 | Outpatient (AMB) | payer MEDICARE, OTHER, SELFPAY ==
[2023-12-16 09:48] VITALS: BP 136/74; PULSE 59; O2SAT 98; BMI 23.8
--- NOTE | 2023-12-16 09:48 | MHC.PC.OV ---
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 Accompanied by: Self / Same As Patient Allergies No Known Allergies Allergy (Verified 12/16/23 09:48) Medication List - Last Reconciled 12/16/23 by Hernesto Escudero MD dextromethorphan HBr 20 mg (15 mL) PO TID PRN 5 days famotidine (Pepcid) 20 mg PO DAILY finasteride 5 mg PO BEDTIME 90 days rosuvastatin 10 mg PO BEDTIME sodium fluoride-pot nitrate 1.1-5 % PO Q3D Tobacco use date assessed: 12/16/23 Fall risk assessment: No Falls in past year Last assessed Fall Risk: 12/16/23 Dental Screening Dental Screen Date: 12/16/23 Did you have a dental visit in the last 12 months?: Yes Did you have a dental problem in the last 6 months where you did not have access to dental care?: No Was dental information given to patient?: Patient has dentist HPI 6mon F/U HPI Details hyperlip on rx; doing well PFSH Medical History Elevated PSA Hx of chronic kidney disease GERD (gastroesophageal reflux disease) BPH (benign prostatic hyperplasia) Hyperlipidemia Surgical History Hx of colonoscopy Hx of esophagogastroduodenoscopy History of left knee replacement History of hernia surgery Family History Mother Acute arthritis Father No problems noted. Social History Housing: House Alcohol intake: current Alcohol intake frequency: a few times a week Alcohol type: beer Patient Tobacco Use Status: Never used Tobacco e-Cigarette/Vaping Use: Never Used Second Hand Smoke Exposure: No service: No Current occupational status: retired Cognitive needs: No Hearing needs: No Vision needs: Yes Questionnaire PHQ-9 Over the last 2 weeks, how often have you been bothered by any of the following problems? 1. Little interest or pleasure in doing things: not at all 2. Feeling down, depressed, or hopeless: not at all 3. Trouble falling or staying asleep, or sleeping too much: not at all 4. Feeling tired or having little energy: not at all 5. Poor appetite or overeating: not at all 6. Feeling bad about yourself - or that you are a failure or have let yourself or your family down: not at all 7. Trouble concentrating on things, such as reading the newspaper or watching television: not at all 8. Moving or speaking so slowly that other people could have noticed. Or the opposite - being so fidgety or restless that you have been moving around a lot more than usual: not at all 9. Thoughts that you would be better off or of hurting yourself in some way: not at all Total score: 0 Depression Screening Interpretation: Negative 27546 - PHQ-9 Billing: Yes Source: Developed by Drs. Doni Mann, Bettina Orellana, Jn Palumbo and colleagues, with an educational gato from [employer]. Thrive Questionnaire Date Thrive assessed: 12/16/23 I am a: Patient What is your living situation today?: I have a steady place to live Within the past 12 months, did the food you bought not last and you didn't have the money to get more?: Never true Within the past 12 months, did you worry whether your food would run out before you got money to buy more?: Never true Do you have trouble paying for medicines?: No Do you have trouble getting transportation to medical appointments?: No Do you have trouble paying your heating and electricity bill?: No Do you have trouble taking care of your child, family member or friend?: No Do you have trouble with day-to-day activities such as bathing, preparing meals, shopping, managing finances, etc.?: No Are you currently unemployed and looking for a job?: No Are you interested in more education?: No Please select the resources that you would like help with: None THRIVE Score: 0 AUDIT C Alcohol Use Questionnaire (AUDIT-C) 1. How often do you have a drink containing alcohol?: 2-4 times a month 2. How many drinks containing alcohol do you have on a typical day when you are drinking?: 1 or 2 3. How often do you have six or more drinks on one occasion?: Never Total Score: 2 Score Reviewed/Action Taken: Yes RONALDO-7 AMB Questionnaire RONALDO-7 Date RONALDO - 7 assessed: 12/16/23 Feeling nervous, anxious, or on edge: 0 = Not at all Not being able to stop or control worryin = Not at all Worrying too much about different things: 0 = Not at all Trouble relaxin = Not at all Being so restless that it is hard to sit still: 0 = Not at all Becoming easily annoyed or irritable: 0 = Not at all Feeling afraid as if something awful might happen: 0 = Not at all Total RONALDO-7 score (0-4 normal; 5-9 mild; 10-14 moderate; 15-21 severe): 0 Source: Developed by Drs. Doni Mann, Bettina Orellana, Jn Palumbo and colleagues, with an educational gato from [employer]. RONALDO-7 Assessment Billing RONALDO-7 Assessment Tool: RONALDO-7 Assessment 49433 Review of Systems Const Denies chills, Denies headache(s) and Denies weight loss ENT Denies headache(s) Card Denies chest pain, Denies syncope, Denies irregular heart rhythm and Denies dyspnea Resp Denies chest congestion, Denies cough and Denies dyspnea GI Denies abdominal pain, Denies change in stool character, Denies nausea and Denies vomiting Musc Denies deformity and Denies joint swelling Neuro Denies syncope and Denies headache(s) Physical exam (Primary Care) Vital Signs: Last Vital Signs Pulse 59 12/16/23 09:48 BP 136/74 12/16/23 09:48 Pulse Ox 98 12/16/23 09:48 Oxygen Delivery Method Room Air 12/16/23 09:48 BMI result Body Mass Index 23.8 Tobacco/Smoking Status: Tobacco use Status Tobacco use date assessed 12/16/23 12/16/23 09:54 Patient Tobacco Use Status Never used Tobacco 12/16/23 09:54 e-Cigarette/Vaping Use Never Used 12/16/23 09:54 PHQ-9: PHQ-9 Score PHQ-9: Total score 0 03/05/24 09:54 Depression Screening Interpretation: Negative Thrive Assessment: Date of Thrive Assessment Date Thrive assessed 12/16/23 12/16/23 09:54 Const General: cooperative, comfortable, no acute distress and alert Neck Neck: Yes no lymphadenopathy Thyroid: Thyroid normal Resp Effort & Inspection: normal respiratory effort Auscultation: clear to auscultation bilaterally Percussion: percussion normal Cardio Jugular venous distension: no JVD Palpation: normal PMI Rate: regular rate Rhythm: regular rhythm Heart sounds: S1 normal heart sound present and S2 normal heart sound present GI Inspection: Yes normal to inspection Palpation (GI): No hepatosplenomegaly present Skin General skin exam: no rashes or lesions noted Extrem General: Yes no clubbing, cyanosis or edema Assessment and Plan Assessment & Plan (1) Hyperlipidemia: Code(s): E78.5 - Hyperlipidemia, unspecified Plan: stable; same rx Orders: Orders Lipid Panel Today E78.5 - Hyperlipidemia, unspecified Complete Blood Count Auto Diff Today D64.9 - Anemia, unspecified Thyroid Stimulating Hormone Today E03.9 - Hypothyroidism, unspecified Comprehensive [place]. Panel Fast Today N28.9 - Disorder of kidney and ureter, unspecified Coding Level of Care Code Est Pt Level 3 (09155) Diagnoses Hyperlipidemia E78.5 Additional Codes RONALDO-7 Assessment Billing - RONALDO-7 Assessment Tool: RONALDO-7 Assessment [id number] ([id number])
== END 2023-12-16 10:12 | disposition home or self-care (01) ==
PROVIDERS: PCP Internal Medicine; Visit Provider Internal Medicine
DX: E78.5 Hyperlipidemia, unspecified (principal)
CPT/HCPCS: 99213

== ENCOUNTER 2023-12-16 10:20 | Outpatient (REF) | payer MEDICARE, OTHER, SELFPAY ==
[2023-12-16 10:48] LABS: MANUAL DIFF FLAG NO
[2023-12-16 11:09] LABS: Basophils Absolute Auto 0.1 X10*3/uL (0.0-0.2); Eosinophils Absolute Auto 0.3 X10*3/uL (0.0-0.4); Eosinophils Percent Auto 3.1 % (0-4); Hematocrit 52.1 % (42.0-52.0); Hemoglobin 17.3 g/dl (14.0-18.0); Imm Gran Abs Auto 0.04 X10*3/uL (0.00-0.03); Imm Gran Pct Auto 0.5 % (0.0-0.4); Lymphocytes Absolute Auto 1.4 X10*3/uL (1.2-4.9); Lymphocytes Percent Auto 16.1 % (20-40); Mean Corpuscular HGB Conc 33.2 g/dl (31.0-36.0); Mean Corpuscular Hemoglobin 29.8 pg (27.0-33.0); Mean Corpuscular Volume 89.8 fL (80.0-98.0); Mean Platelet Volume 10.1 fL (9.4-12.4); Monocytes Absolute Auto 0.7 X10*3/uL (0.1-1.2); Monocytes Percent Auto 8.1 % (2-11); Neutrophils Absolute Auto 6.2 x10*3/uL (2.0-8.3); Neutrophils Percent Auto 71.2 % (45-73); Platelet Count 167 X10*3/uL (160-400); Red Cell Distribution Width 12.1 % (11.0-16.0); White Blood Count 8.7 X10*3/uL (4.8-10.8)
[2023-12-16 11:40] LABS: Alanine Aminotransferase 20 U/L (0-40); Albumin Level 4.1 g/dL (3.5-5.0); Alkaline Phosphatase 67 U/L (39-117); Anion Gap 10 (12-20); Aspartate Amino Transferase 18 U/L (5-37); Bilirubin Total 1.4 mg/dL (0.0-1.0); Blood Urea Nitrogen 22 mg/dL (9-16); Calcium 9.4 mg/dL (8.4-10.2); Carbon Dioxide 31 mmol/L (22-29); Chloride 102 mmol/L (96-108); Cholesterol 134 mg/dL (<200); Estimated Glomerular Filt Rate 46; Glucose Fasting 94 mg/dL (60-99); HDL Cholesterol 53 mg/dL (>40); LDL Cholesterol Calculated 69 mg/dL (<100); Potassium 4.2 mmol/L (3.3-5.1); Sodium 139 mmol/L (135-145); Total Protein 6.5 g/dL (6.5-8.0); Triglycerides 64 mg/dL (<150)
[2023-12-16 11:59] LABS: PSA,Total (Free>4and<10) 3.08 ng/mL (0.00-4.00)
== END 2023-12-16 10:21 | disposition home or self-care (01) ==
LOC: HO.LAB 10:20
PROVIDERS: Urology; PCP Internal Medicine; Visit Provider Internal Medicine
DX: Z12.5 Encounter for screening for malignant neoplasm of prostate (principal); R97.20 Elevated prostate specific antigen [PSA]; N28.9 Disorder of kidney and ureter, unspecified; D64.9 Anemia, unspecified; E78.5 Hyperlipidemia, unspecified
CPT/HCPCS: 36415; 80053; 80061; 84153; 85025

== ENCOUNTER 2024-05-05 11:19 | Outpatient (AMB) | payer MEDICARE, OTHER, SELFPAY ==
--- NOTE | 2024-05-05 11:16 | A.OFFVIS_ITS ---
Intake Visit Reasons: 6M Follow Up- PSA(set) Intake Note: Patient is Present for 6M Follow Up PSA Urology Medication:Finasteride Antibiotic Allergies:None Blood Thinners: None Service Team Leader Required: No Allergies No Known Allergies Allergy (Verified 05/05/24 11:18) HPI Comments Details: Michael is a pleasant male. He is a patient of Dr. Escudero. He seen for the following urologic conditions - elevated PSA Telemedicine Evaluation 15 min Consultation [employer] Stephanie Video Has been using finasteride 1 tab Friday, Friday, Friday PSA stabilized proximally 3 Had libido side effects from finasteride Recommend urine DNA test for risk assessment. Might also benefit from prostate MRI. ExoDX Three-month follow-up Elevated PSA Slow rise Discussed risk of prostate cancer No reported family history - father had enlarged prostate PSA had declined with daily finasteride 12/04 4.0, 06/03 4.6, 11/04 4.6 24%, 05/04 2.9, 11/05 4.2, 01/03 3.1 Imaging 40 g prostate PFSH Medical History Elevated PSA Hx of chronic kidney disease GERD (gastroesophageal reflux disease) BPH (benign prostatic hyperplasia) Hyperlipidemia Surgical History Hx of colonoscopy Hx of esophagogastroduodenoscopy History of left knee replacement History of hernia surgery Family History Mother Acute arthritis Father No problems noted. Social History Housing: House Alcohol intake: current Alcohol intake frequency: a few times a week Alcohol type: beer Patient Tobacco Use Status: Never used Tobacco e-Cigarette/Vaping Use: Never Used Second Hand Smoke Exposure: No service: No Current occupational status: retired Cognitive needs: No Hearing needs: No Vision needs: Yes Telehealth Telehealth Telehealth Platform: INNOBI Location of provider rendering services: practice address Location of patient: address on file Patient Identification confirmed using: Name, : Yes Telehealth method: video Patient verbally consented to treatment: Yes Patient verbally consented to billing insurance company: Yes Patient informed of any privacy concerns related to visit: Yes Minutes spent on Phone/Video with Pt.: 15 Assessment & Plan Assessment & Plan (1) Elevated PSA: Code(s): R97.20 - Elevated prostate specific antigen [PSA] Category: Medical (2) BPH (benign prostatic hyperplasia): Code(s): N40.0 - Benign prostatic hyperplasia without lower urinary tract symptoms Category: Medical Plan Stop Finasteride 3 month f/u exodx Patient Instructions: Imaging studies, laboratory and physical exam results were discussed and reviewed in detail. No major barriers to patient understanding were identified. An opportunity to ask questions regarding the treatment plan was provided. All questions were answered. The patient expressed understanding and agreement with the above treatment plan. The patient is aware they should contact our office by phone for worsening of their current condition or the appearance of new urologic symptoms. Compliance is encouraged with any medications and followup testing that is ordered. It is a privilege to participate in the urologic care of your patient. If you have any questions or concerns regarding treatment for the above conditions, or other urologic issues, please do not hesitate to contact me. The office telephone contact is [phone]. This note is constructed using voice recognition software. While every effort has been made to ensure accuracy regional company flatbed truck driver errors may have been included. Yours sincerely, Dr Parth Nova MD, [facility] - Urology Providers of Expert, Compassionate Care for the Genitourinary System Coding Level of Care Code Tele Est Pt Level 3 (71608) Diagnoses Elevated PSA R97.20 BPH (benign prostatic hyperplasia) N40.0
== END 2024-05-05 12:04 | disposition home or self-care (01) ==
LOC: HO.HUSH 11:20
PROVIDERS: PCP Internal Medicine; Visit Provider Urology
DX: R97.20 Elevated prostate specific antigen [PSA] (principal); N40.0 Benign prostatic hyperplasia without lower urinary tract symptoms
CPT/HCPCS: 99213

== ENCOUNTER → 2024-05-05 11:19 | Outpatient (BNVA) | payer MEDICARE, OTHER, SELFPAY | PROVIDERS: PCP Internal Medicine; Visit Provider Urology ==

== ENCOUNTER 2024-06-17 10:43 | Outpatient (AMB) | payer MEDICARE, OTHER, SELFPAY ==
[2024-06-17 10:46] VITALS: BP 138/90; PULSE 67; O2SAT 93; BMI 23.0
--- NOTE | 2024-06-17 10:46 | MHC.PC.OV ---
Vital Signs 06/17/24 10:46 Height 5 ft 11 in Weight 165 lb BMI 23.0 BP 138/90 H Blood Pressure Location Lt brachial Position Sitting Pulse 67 Pulse Source Pulse Oximeter Pulse Oximetry (%) 93 Oxygen Delivery Method Room Air Intake Visit Reasons: 6mth f/u Leave Coordinator Required: No Accompanied by: Self / Same As Patient Allergies No Known Allergies Allergy (Verified 06/17/24 10:48) Medication List - Last Reconciled 06/17/24 by Hernesto Escudero MD dextromethorphan HBr 20 mg (15 mL) PO TID PRN 5 days famotidine (Pepcid) 20 mg PO DAILY finasteride 5 mg PO BEDTIME 90 days rosuvastatin 10 mg PO BEDTIME sodium fluoride-pot nitrate 1.1-5 % PO Q3D Tobacco use date assessed: 12/16/23 Fall risk assessment: No Falls in past year Last assessed Fall Risk: 06/17/24 Dental Screening Dental Screen Date: 12/16/23 HPI 6mth f/u HPI Details hyperlipidemia on rx; doing well and compliant [facility] Medical History Elevated PSA Hx of chronic kidney disease GERD (gastroesophageal reflux disease) BPH (benign prostatic hyperplasia) Hyperlipidemia Surgical History Hx of colonoscopy Hx of esophagogastroduodenoscopy History of left knee replacement History of hernia surgery Family History Mother Acute arthritis Father No problems noted. Social History Housing: House Alcohol intake: current Alcohol intake frequency: a few times a week Alcohol type: beer Patient Tobacco Use Status: Never used Tobacco Tobacco use type: Cigarette e-Cigarette/Vaping Use: Never Used Second Hand Smoke Exposure: No service: No Current occupational status: retired Cognitive needs: No Hearing needs: No Vision needs: Yes Questionnaire PHQ-9 Over the last 2 weeks, how often have you been bothered by any of the following problems? 1. Little interest or pleasure in doing things: not at all 2. Feeling down, depressed, or hopeless: not at all 3. Trouble falling or staying asleep, or sleeping too much: not at all 4. Feeling tired or having little energy: not at all 5. Poor appetite or overeating: not at all 6. Feeling bad about yourself - or that you are a failure or have let yourself or your family down: not at all 7. Trouble concentrating on things, such as reading the newspaper or watching television: not at all 8. Moving or speaking so slowly that other people could have noticed. Or the opposite - being so fidgety or restless that you have been moving around a lot more than usual: not at all 9. Thoughts that you would be better off or of hurting yourself in some way: not at all Total score: 0 Depression Screening Interpretation: Negative Depression Screening Done: Yes 82970 - PHQ-9 Billing: Yes Source: Developed by Drs. Doni Mann, Bettina Orellana, Jn Palumbo and colleagues, with an educational gato from [employer]. Thrive Questionnaire Date Thrive assessed: 12/16/23 AUDIT C Alcohol Use Questionnaire (AUDIT-C) 1. How often do you have a drink containing alcohol?: 2-4 times a month 2. How many drinks containing alcohol do you have on a typical day when you are drinking?: 1 or 2 3. How often do you have six or more drinks on one occasion?: Never Total Score: 2 Score Reviewed/Action Taken: Yes RONALDO-7 AMB Questionnaire RONALDO-7 Date RONALDO - 7 assessed: 12/16/23 Source: Developed by Drs. Doni Mann, Bettina Orellana, Jn Palumbo and colleagues, with an educational gato from [employer]. Review of Systems Const Denies chills, Denies headache(s) and Denies weight loss ENT Denies headache(s) Card Denies chest pain, Denies syncope, Denies irregular heart rhythm and Denies dyspnea Resp Denies chest congestion, Denies cough and Denies dyspnea GI Denies abdominal pain, Denies change in stool character, Denies nausea and Denies vomiting Musc Denies deformity and Denies joint swelling Neuro Denies syncope and Denies headache(s) Physical exam (Primary Care) Vital Signs: Last Vital Signs Pulse 67 06/17/24 10:46 BP 138/90 H 06/17/24 10:46 Pulse Ox 93 06/17/24 10:46 Oxygen Delivery Method Room Air 06/17/24 10:46 BMI result Body Mass Index 23.0 Tobacco/Smoking Status: Tobacco use Status Tobacco use date assessed 12/16/23 06/17/24 10:46 Patient Tobacco Use Status Never used Tobacco 06/17/24 10:46 Tobacco use type Cigarette 06/17/24 10:51 e-Cigarette/Vaping Use Never Used 06/17/24 10:46 PHQ-9: PHQ-9 Score PHQ-9: Total score 0 06/17/24 10:51 Depression Screening Interpretation: Negative Thrive Assessment: Date of Thrive Assessment Date Thrive assessed 12/16/23 06/17/24 10:46 Const General: cooperative, comfortable, no acute distress and alert Neck Neck: Yes no lymphadenopathy Thyroid: Thyroid normal Resp Effort & Inspection: normal respiratory effort Auscultation: clear to auscultation bilaterally Percussion: percussion normal Cardio Jugular venous distension: no JVD Palpation: normal PMI Rate: regular rate Rhythm: regular rhythm Heart sounds: S1 normal heart sound present and S2 normal heart sound present GI Inspection: Yes normal to inspection Palpation (GI): No hepatosplenomegaly present Skin General skin exam: no rashes or lesions noted Extrem General: Yes no clubbing, cyanosis or edema Assessment and Plan Assessment & Plan (1) Hyperlipidemia: Code(s): E78.5 - Hyperlipidemia, unspecified Plan: stable; same rx Orders: Orders Lipid Panel Today Z13.220 - Encounter for screening for lipoid disorders Coding Level of Care Code Est Pt Level 3 (41237) Diagnoses Hyperlipidemia E78.5
== END 2024-06-17 11:06 | disposition home or self-care (01) ==
PROVIDERS: PCP Internal Medicine; Visit Provider Internal Medicine
DX: E78.5 Hyperlipidemia, unspecified (principal)
CPT/HCPCS: 99213

== ENCOUNTER 2024-06-17 11:12 | Outpatient (REF) | payer MEDICARE, OTHER, SELFPAY ==
[2024-06-17 11:21] LABS: MANUAL DIFF FLAG NO
[2024-06-17 11:43] LABS: Basophils Absolute Auto 0.1 X10*3/uL (0.0-0.2); Eosinophils Absolute Auto 0.2 X10*3/uL (0.0-0.4); Eosinophils Percent Auto 2.8 % (0-4); Hematocrit 49.5 % (42.0-52.0); Hemoglobin 16.4 g/dl (14.0-18.0); Imm Gran Abs Auto 0.02 X10*3/uL (0.00-0.03); Imm Gran Pct Auto 0.3 % (0.0-0.4); Lymphocytes Absolute Auto 1.2 X10*3/uL (1.2-4.9); Lymphocytes Percent Auto 19.9 % (20-40); Mean Corpuscular HGB Conc 33.1 g/dl (31.0-36.0); Mean Corpuscular Hemoglobin 30.3 pg (27.0-33.0); Mean Corpuscular Volume 91.5 fL (80.0-98.0); Mean Platelet Volume 9.9 fL (9.4-12.4); Monocytes Absolute Auto 0.7 X10*3/uL (0.1-1.2); Monocytes Percent Auto 10.8 % (2-11); Neutrophils Absolute Auto 3.9 x10*3/uL (2.0-8.3); Neutrophils Percent Auto 65.2 % (45-73); Platelet Count 168 X10*3/uL (160-400); Red Blood Count 5.41 X10*6/uL (4.60-5.80); Red Cell Distribution Width 12.6 % (11.0-16.0)
[2024-06-17 12:31] LABS: Alanine Aminotransferase 23 U/L (0-40); Albumin Level 4.1 g/dL (3.5-5.0); Alkaline Phosphatase 54 U/L (39-117); Anion Gap 12 (12-20); Aspartate Amino Transferase 24 U/L (5-37); Bilirubin Total 1.2 mg/dL (0.0-1.0); Blood Urea Nitrogen 24 mg/dL (9-16); Calcium 9.4 mg/dL (8.4-10.2); Carbon Dioxide 27 mmol/L (22-29); Chloride 102 mmol/L (96-108); Cholesterol 146 mg/dL (<200); Estimated Glomerular Filt Rate 40; Glucose Fasting 102 mg/dL (60-99); HDL Cholesterol 56 mg/dL (>40); LDL Cholesterol Calculated 82 mg/dL (<100); Potassium 4.1 mmol/L (3.3-5.1); Sodium 137 mmol/L (135-145); Total Protein 6.3 g/dL (6.5-8.0); Triglycerides 42 mg/dL (<150)
[2024-06-17 12:35] LABS: Thyroid Stimulating Hormone 1.88 uIU/mL (0.32-4.0)
== END 2024-06-17 11:13 | disposition home or self-care (01) ==
LOC: HO.LAB 11:12
PROVIDERS: PCP Internal Medicine; Visit Provider Internal Medicine
DX: E03.9 Hypothyroidism, unspecified (principal); E78.5 Hyperlipidemia, unspecified; D64.9 Anemia, unspecified; N28.9 Disorder of kidney and ureter, unspecified
CPT/HCPCS: 36415; 80053; 80061; 84443; 85025

== ENCOUNTER 2024-09-21 09:19 | Outpatient (AMB) | payer MEDICARE, OTHER, SELFPAY ==
--- NOTE | 2024-09-21 09:21 | A.OFFVIS_ITS ---
Intake Visit Reasons: 3M ExoDx results(set) Intake Note: Patient is present for 3M EXODX RESULTS Urology Medication:NONE Antibiotic Allergy:NONE Blood Thinner:NONE Manager Audio Required: No Allergies No Known Allergies Allergy (Verified 09/21/24 09:22) HPI Comments Details: Michael is a pleasant male. He is a patient of Dr. Escudero. He seen for the following urologic conditions - elevated PSA ExoDX - High Risk 55 Discussed findings Recommend prostate biopsy Elevated PSA Slow rise Discussed risk of prostate cancer No reported family history - father had enlarged prostate PSA had declined with daily finasteride - however had libido issues 12/04 4.0, 06/03 4.6, 11/04 4.6 24%, 05/04 2.9, 11/05 4.2, 01/03 3.1 Imaging 40 g prostate PFSH Medical History Elevated PSA Hx of chronic kidney disease GERD (gastroesophageal reflux disease) BPH (benign prostatic hyperplasia) Hyperlipidemia Surgical History Hx of colonoscopy Hx of esophagogastroduodenoscopy History of left knee replacement History of hernia surgery Family History Mother Acute arthritis Father No problems noted. Social History Housing: House Alcohol intake: current Alcohol intake frequency: a few times a week Alcohol type: beer Patient Tobacco Use Status: Never used Tobacco Tobacco use type: Cigarette e-Cigarette/Vaping Use: Never Used Second Hand Smoke Exposure: No service: No Current occupational status: retired Cognitive needs: No Hearing needs: No Vision needs: Yes Review of Systems Const Denies chills and Denies fever(s) Card Reports no additional complaints and Denies syncope Resp Denies cough GI Denies abdominal pain and Denies heartburn Reports as per HPI and Denies change in libido Neuro Denies syncope Psych Denies change in libido Endo Denies change in libido Physical Exam Const General: cooperative, healthy appearing, comfortable and no acute distress Orientation/consciousness: patient oriented x3 HEENT Face and sinus: Yes normal facial exam Mouth: moist mucous membranes Neck Neck: Yes normal visual inspection, Yes full ROM and Yes trachea midline Chest Chest palpation & inspection: normal inspection of the chest Resp Effort & Inspection: normal respiratory effort, able to speak in complete sentences and no respiratory distress GI Inspection: Yes normal to inspection Back/Spine/Pelvis Cervical Spine: normal cervical lordosis Thoracic/Lumbar Spine: thoracic and lumbar spine normal to inspection Skin General skin exam: no rashes or lesions noted Neuro General: patient oriented x3, gait normal, tone normal and moves all extremities Extrem General: Yes normal to inspection and Yes capillary refill normal Results AMB Urinalysis, Automated UA Leukoctes 0 Mima/uL Last Edit by KATIE Hobbs on 09/21/24 09:39 UA Nitrite Negative Last Edit by KATIE Hobbs on 09/21/24 09:39 UA Urobilinogen 0.2 mg/dL Last Edit by KATIE Hobbs on 09/21/24 09:3 9 UA Protein 15 mg/dL Last Edit by KATIE Hobbs on 09/21/24 09:39 UA pH 6.0 Last Edit by KATIE Hobbs on 09/21/24 09:39 UA Blood 10 Chinedu/uL Last Edit by KATIE Hobbs on 09/21/24 09:39 UA Specific [place] 1.030 Last Edit by KATIE Hobbs on 09/21/24 09: 39 UA Ketone Negative Last Edit by KATIE Hobbs on 09/21/24 09:39 UA Bilirubin 0 mg/dL Last Edit by KATIE Hobbs on 09/21/24 09:39 UA Glucose 0 mg/dL Last Edit by KATIE Hobbs on 09/21/24 09:39 Results Reviewed Results Reviewed: Laboratory Last Values Urine pH (Auto) 6.0 09/21/24 09:39 Specific [place] (Auto) 1.030 09/21/24 09:39 Urine Protein (Auto) 15 mg/dL 09/21/24 09:39 Glucose (UA)(Auto) 0 mg/dL 09/21/24 09:39 Urine Ketones (Auto) Negative 09/21/24 09:39 Urine Blood (Auto) 10 Chinedu/uL 09/21/24 09:39 Urine Nitrite (Auto) Negative 09/21/24 09:39 Urine Bilirubin (Auto) 0 mg/dL 09/21/24 09:39 Urine Urobilinogen (Auto) 0.2 mg/dL 09/21/24 09:39 Leukocyte Esterase (Auto) 0 Mima/uL 09/21/24 09:39 Assessment & Plan Assessment & Plan (1) Elevated PSA: Code(s): R97.20 - Elevated prostate specific antigen [PSA] Category: Medical Plan Risks and benefits regarding trans rectal ultrasound with prostate biopsy were discussed. Options of continued surveillance, no treatment and biopsy were offered. The risks include but are not limited to, urinary tract infection, sepsis, difficulty urinating, bleeding into the rectum or bladder that requires intervention and transfusion,and failure to diagnose prostate cancer. The patient understands the options and the risks involved. They wish to proceed. Printed information was provided to ensure he remains off anticoagulation for the appropriate length of time. He may require cardiology or PCP clearance. An antibiotic will be administered prior to, and following the procedure Orders: Orders AMB Urinalysis Automated 09/21/24 Z13.9 - Encounter for screening, unspecified Medications: New levofloxacin Take day before, day of and day after procedure 500 mg PO ONCE 3 tabs 0RF 3 d ays R97.20 - Elevated prostate specific antigen [PSA] Patient Instructions: Imaging studies, laboratory and physical exam results were discussed and reviewed in detail. No major barriers to patient understanding were identified. An opportunity to ask questions regarding the treatment plan was provided. All questions were answered. The patient expressed understanding and agreement with the above treatment plan. The patient is aware they should contact our office by phone for worsening of their current condition or the appearance of new urologic symptoms. Compliance is encouraged with any medications and followup testing that is ordered. It is a privilege to participate in the urologic care of your patient. If you have any questions or concerns regarding treatment for the above conditions, or other urologic issues, please do not hesitate to contact me. The office telephone contact is [phone]. This note is constructed using voice recognition software. While every effort has been made to ensure accuracy auto wash buffer errors may have been included. Yours sincerely, Dr Parth Nova MD, [facility] - Urology Providers of Expert, Compassionate Care for the Genitourinary System Coding Level of Care Code Est Pt Level 4 (00494) Diagnoses Elevated PSA R97.20
--- OUTSIDE RECORDS SUMMARY | 2024-09-22 19:26 | XMS_ITS | Patient Health Record ---
Author Organization [facility] Address [address] [place] [address] Care Team Providers Care Career Development Engineer Name Role Phone Kota ADEN, Hernesto Primary Care Provider Unavaila Tae Chicas Jr Unavailable [phone] ALLERGIES No Known Allergies REASON FOR REFERRAL No Information MEDICATIONS Medication SIG (Take, Route, Frequency, Duration) Notes Start Date End Date Status Atorvastatin Calcium 10 MG 1 tablet Oral ly Once a day Active Omeprazole 20 MG 1 capsule Orally Onc e a day for 90 days Active MiraLax (colon prep) 17 GM/SCOOP mixed with Gatorade or Crystal Light Orally begin at 5:00 p.m. the day before the procedure for 1 day 09/11/2022 Active IMMUNIZATIONS Vaccine Route Administration Date Status Comme nts Influenza Unknown 09/11/2022 Refused SOCIAL HISTORY Sex Assigned At : Social History Observation Description Sex Assigned At Unknown Alcohol Screen Question Answer Notes Did you have a drink contain ing alcohol in the past year? Yes How often did you have a dri nk containing alcohol in the past year? 2 to 4 times a month (2 points) How many drinks did you have on a typical day when you were drinking in the past year? 1 or 2 drinks (0 point) How often did you have 6 or more drinks on one occasion in the past year? Never (0 point) Points 2 Interpretation Negative PROBLEMS Problem Type ICD Code Onset Dates Problem Status W/U Status Risk SNOMED Code Notes Problem Colon cancer screening (Z12.11) Active confirmed 278953706 Problem Personal history of colonic polyps (Z86.010) Active confirmed 997075066 Problem Gastroesophageal reflux disease without esophagitis (K21.9) Active confirmed 986192346 Problem Dysphagia, unspecified type (R13.10) Active confirmed 92558011 Problem Schatzki's ring (K22.2) Active confirmed 521267790 PLAN OF TREATMENT Future Test Test Name Order Date UPPER GI ENDOSCOPY BALLOOON DILATION OF ESOPH 10/28/2012 UPPER GI ENDOSCOPY BALLOOON DILATION OF ESOPH 05/16/2017 COLONOSCOPY 05/16/2017 COLONOSCOPY 09/11/2022 Insurance Providers Payer Name Payer Address Payer Phone Subscriber Number Group Number Insured Name Patient Relationship to Insured Coverage Start Date Coverage End Date MEDICARE OF [place] [address] [place] [address] [id number] CHAVA RAMIREZ Self - patient is the insured [facility] [address] [place] [phone] [id number] CHAVA RAMIREZ Self - patient is the insured MEDICAL (GENERAL) HISTORY Medical History History ICD Code EGD in 08/13/17, [place] mc g, dilated to 20 mm, biopsies negative for Quiroz's/H. pylori Gastroesophageal reflux disease Colonoscopy 06/25/17, negativ e, five-year followup for history of colon polyps. Chronic kidney disease Elevated PSA Elevated cholesterol Surgical History Surgery Date(Month/Year) Bilateral inguinal hernia repair Left knee replacement
== END 2024-09-21 10:05 | disposition home or self-care (01) ==
PROVIDERS: PCP Internal Medicine; Visit Provider Urology
DX: R97.20 Elevated prostate specific antigen [PSA] (principal)
CPT/HCPCS: 99214

== ENCOUNTER → 2024-09-21 09:19 | Outpatient (BNVA) | payer MEDICARE, OTHER, SELFPAY | PROVIDERS: PCP Internal Medicine; Visit Provider Urology | DX: R97.20 Elevated prostate specific antigen [PSA] (principal) | CPT/HCPCS: 81003; 99212 ==

== ENCOUNTER → 2024-09-30 07:56 | Outpatient (BNV) | payer MEDICARE, OTHER, SELFPAY | PROVIDERS: PCP Internal Medicine; Visit Provider Urology | DX: R97.20 Elevated prostate specific antigen [PSA] (principal) | CPT/HCPCS: 55700; 76872; 76942 ==

== ENCOUNTER 2024-10-22 09:44 | Outpatient (AMB) | payer MEDICARE, OTHER, SELFPAY ==
--- NOTE | 2024-10-22 09:44 | MHC.OFFVIS ---
Intake Visit Reasons: Prostate biopsy results Intake Note: Pt presents to the office today as a telehealth appt for his prostate biopsy results. Allergies No Known Allergies Allergy (Verified 10/22/24 09:44) HPI Comments Details: Michael is a pleasant male. He is a patient of Dr. Escudero. He seen for the following urologic conditions - elevated PSA Telemedicine Evaluation 15 min Consultation Doximity Stephanie Video Prostate biopsy discussion Shows prostate atrophy with evidence of chronic inflammation No evidence of prostate cancer Follow-up PSA Q six-month Elevated PSA Slow rise No reported family history - father had enlarged prostate PSA had declined with daily finasteride - however had libido issues 12/04 4.0, 06/03 4.6, 11/04 4.6 24%, 05/04 2.9, 11/05 4.2, 01/03 3.1 EndoDX 08/05 54 Imaging 40 g prostate Prostate Biopsy 10/05 - would prefer sedation if required PFSH Medical History Elevated PSA Hx of chronic kidney disease GERD (gastroesophageal reflux disease) BPH (benign prostatic hyperplasia) Hyperlipidemia Surgical History Hx of colonoscopy Hx of esophagogastroduodenoscopy History of left knee replacement History of hernia surgery Family History Mother Acute arthritis Father No problems noted. Social History Housing: House Alcohol intake: current Alcohol intake frequency: a few times a week Alcohol type: beer Patient Tobacco Use Status: Never used Tobacco Tobacco use type: Cigarette e-Cigarette/Vaping Use: Never Used Second Hand Smoke Exposure: No service: No Current occupational status: retired Cognitive needs: No Hearing needs: No Vision needs: Yes Review of Systems Const All systems reviewed & are unremarkable except as noted in HPI and below Reports no additional complaints Resp Reports no additional complaints GI Reports no additional complaints Reports as per HPI Musc Reports no additional complaints Physical Exam Telemedicine evaluation Appropriate responses Regular breathing rate and rhythm HEENT Head: Yes normal to inspection Ears: hearing grossly normal bilaterally Eyes General: appearance normal, both eyes and all related structures Neck Neck: Yes normal visual inspection Chest Chest palpation & inspection: normal inspection of the chest Resp Effort & Inspection: normal respiratory effort and able to speak in complete sentences Telehealth Telehealth Telehealth Platform: [employer] Location of provider rendering services: practice address Location of patient: address on file Patient Identification confirmed using: Name, : Yes Telehealth method: video Patient verbally consented to treatment: Yes Patient verbally consented to billing insurance company: Yes Patient informed of any privacy concerns related to visit: Yes Minutes spent on Phone/Video with Pt.: 15 Assessment & Plan Assessment & Plan (1) Nocturia: Code(s): R35.1 - Nocturia Category: Medical (2) BPH (benign prostatic hyperplasia): Code(s): N40.0 - Benign prostatic hyperplasia without lower urinary tract symptoms Category: Medical Plan continue q6m PSA check Orders: Orders Prostate Specific Antigen 6 Months R97.20 - Elevated prostate specific antigen [PSA] Patient Instructions: Imaging studies, laboratory and physical exam results were discussed and reviewed in detail. No major barriers to patient understanding were identified. An opportunity to ask questions regarding the treatment plan was provided. All questions were answered. The patient expressed understanding and agreement with the above treatment plan. The patient is aware they should contact our office by phone for worsening of their current condition or the appearance of new urologic symptoms. Compliance is encouraged with any medications and followup testing that is ordered. It is a privilege to participate in the urologic care of your patient. If you have any questions or concerns regarding treatment for the above conditions, or other urologic issues, please do not hesitate to contact me. The office telephone contact is [phone]. This note is constructed using voice recognition software. While every effort has been made to ensure accuracy press room supervisor errors may have been included. Yours sincerely, Dr Parth Nova MD, [facility] - Urology Providers of Expert, Compassionate Care for the Genitourinary System Coding Level of Care Code Tele Est Pt Level 3 (37453) Diagnoses Nocturia R35.1 BPH (benign prostatic hyperplasia) N40.0
--- OUTSIDE RECORDS SUMMARY | 2024-10-22 09:47 | XMS_ITS | Patient Health Record ---
Author Organization [facility] Address [address] [place] [address] Care Team Providers Care Professor Of Art Name Role Phone Kota ADEN, Hernesto Primary Care Provider Unavaila Tae Chicas Jr Unavailable [phone] ALLERGIES No Known Allergies REASON FOR [...] Problem Colon cancer screening (Z12.11) Active confirmed 424312212 Problem Personal history of colonic polyps (Z86.010) Active confirmed 576388737 Problem Gastroesophageal reflux disease without esophagitis (K21.9) Active confirmed 377292801 Problem Dysphagia, unspecified type (R13.10) Active confirmed 07146058 Problem Schatzki's ring (K22.2) Active confirmed 502071536 PLAN OF TREATMENT Future Test Test Name Order Date UPPER GI ENDOSCOPY BALLOOON DILATION OF ESOPH 10/28/2012 UPPER GI ENDOSCOPY BALLOOON DILATION OF ESOPH 05/16/2017 COLONOSCOPY 05/16/2017 COLONOSCOPY 09/11/2022 Insurance Providers Payer Name Payer Address Payer Phone Subscriber Number Group Number Insured Name Patient Relationship to Insured Coverage Start Date Coverage End Date MEDICARE OF [place] [address] [place] [address] [id number] CHAVA RAMIREZ Self - patient is the insured [facility] [address] [place] [address] [id number] CHAVA RAMIREZ Self - patient is the [...]
== END 2024-10-22 10:48 | disposition home or self-care (01) ==
LOC: HO.HUSH 09:44
PROVIDERS: PCP Internal Medicine; Visit Provider Urology
DX: R35.1 Nocturia (principal); N40.0 Benign prostatic hyperplasia without lower urinary tract symptoms
CPT/HCPCS: 99213

== ENCOUNTER → 2024-10-22 09:44 | Outpatient (BNVA) | payer MEDICARE, OTHER, SELFPAY | PROVIDERS: PCP Internal Medicine; Visit Provider Urology ==

== ENCOUNTER 2024-12-15 12:39 | Outpatient (AMB) | payer MEDICARE, OTHER, SELFPAY ==
--- NOTE | 2024-12-15 12:41 | A.OFFPC_ITS ---
Vital Signs 12/15/24 12:44 Height 5 ft 11 in Weight 168 lb 4 oz BMI 23.5 BP 120/62 Blood Pressure Location Lt brachial Position Sitting Pulse 51 Pulse Source Pulse Oximeter Temp 97.3 F Temp Source Temporal Artery Scan Pulse Oximetry (%) 95 Oxygen Delivery Method Room Air Intake Visit Reasons: 6mth f/u Intake Note: Patient is here to follow up on HLD, BPH. Leasing Assistant Required: No Manager Corporate Marketing: Not Required per policy Accompanied by: Self / Same As Patient Allergies No Known Allergies Allergy (Verified 12/15/24 12:43) Medication List - Last Reconciled 12/16/24 by Hernesto Escudero MD famotidine (Pepcid) 20 mg PO DAILY rosuvastatin 10 mg PO BEDTIME sodium fluoride-pot nitrate 1.1-5 % PO Q3D Tobacco use date assessed: 12/15/24 Fall risk assessment: No Falls in past year Last assessed Fall Risk: 12/15/24 Dental Screening Dental Screen Date: 12/15/24 Did you have a dental visit in the last 12 months?: Yes Did you have a dental problem in the last 6 months where you did not have access to dental care?: No Was dental information given to patient?: Patient has dentist HPI 6mth f/u HPI Details hyperlipidemia on rx; doing well; compliant [facility] Medical History Elevated PSA Hx of chronic kidney disease GERD (gastroesophageal reflux disease) BPH (benign prostatic hyperplasia) Hyperlipidemia Surgical History Hx of colonoscopy Hx of esophagogastroduodenoscopy History of left knee replacement History of hernia surgery Family History Mother Acute arthritis Father No problems noted. Social History Housing: House Alcohol intake: current Alcohol intake frequency: a few times a week Alcohol type: beer Patient Tobacco Use Status: Never used Tobacco Tobacco use type: Cigarette e-Cigarette/Vaping Use: Never Used Second Hand Smoke Exposure: No service: No Current occupational status: retired Cognitive needs: No Hearing needs: No Vision needs: Yes (Glasses) Questionnaire PHQ-9 Over the last 2 weeks, how often have you been bothered by any of the following problems? 1. Little interest or pleasure in doing things: not at all 2. Feeling down, depressed, or hopeless: not at all 3. Trouble falling or staying asleep, or sleeping too much: not at all 4. Feeling tired or having little energy: not at all 5. Poor appetite or overeating: not at all 6. Feeling bad about yourself - or that you are a failure or have let yourself or your family down: not at all 7. Trouble concentrating on things, such as reading the newspaper or watching television: not at all 8. Moving or speaking so slowly that other people could have noticed. Or the opposite - being so fidgety or restless that you have been moving around a lot more than usual: not at all 9. Thoughts that you would be better off or of hurting yourself in some way: not at all Total score: 0 Depression Screening Interpretation: Negative Depression Screening Done: Yes Source: Developed by Drs. Doni Mann, Bettina Orellana, Jn Palumbo and colleagues, with an educational gato from [employer]. Thrive Questionnaire Date Thrive assessed: 12/15/24 I am a: Patient What is your living situation today?: I have a steady place to live Within the past 12 months, did the food you bought not last and you didn't have the money to get more?: Never true Within the past 12 months, did you worry whether your food would run out before you got money to buy more?: Never true Do you have trouble paying for medicines?: No Do you have trouble getting transportation to medical appointments?: No Do you have trouble paying your heating and electricity bill?: No Do you have trouble taking care of your child, family member or friend?: No Do you have trouble with day-to-day activities such as bathing, preparing meals, shopping, managing finances, etc.?: No Are you currently unemployed and looking for a job?: No Are you interested in more education?: No Please select the resources that you would like help with: None Currently or been in a relationship where the following occur: No concerns reported THRIVE Score: 0 AUDIT C Alcohol Use Questionnaire (AUDIT-C) 1. How often do you have a drink containing alcohol?: 2-4 times a month 2. How many drinks containing alcohol do you have on a typical day when you are drinking?: 1 or 2 Total Score: 2 RONALDO-7 AMB Questionnaire RONALDO-7 Date RONALDO - 7 assessed: 12/15/24 Feeling nervous, anxious, or on edge: 0 = Not at all Not being able to stop or control worryin = Not at all Worrying too much about different things: 0 = Not at all Trouble relaxin = Not at all Being so restless that it is hard to sit still: 0 = Not at all Becoming easily annoyed or irritable: 0 = Not at all Feeling afraid as if something awful might happen: 0 = Not at all Total RONALDO-7 score (0-4 normal; 5-9 mild; 10-14 moderate; 15-21 severe): 0 Source: Developed by Drs. Doni Mann, Bettina Orellana, Jn Palumbo and colleagues, with an educational gato from [employer]. Review of Systems Const Denies chills, Denies headache(s) and Denies weight loss ENT Denies headache(s) Card Denies chest pain, Denies syncope, Denies irregular heart rhythm and Denies dyspnea Resp Denies chest congestion, Denies cough and Denies dyspnea GI Denies abdominal pain, Denies change in stool character, Denies nausea and Denies vomiting Musc Denies deformity and Denies joint swelling Neuro Denies syncope and Denies headache(s) Physical exam (Primary Care) Vital Signs: Last Vital Signs Temp 97.3 F 12/15/24 12:44 Pulse 51 12/15/24 12:44 BP 120/62 12/15/24 12:44 Pulse Ox 95 12/15/24 12:44 Oxygen Delivery Method Room Air 12/15/24 12:44 BMI result Body Mass Index 23.5 Tobacco/Smoking Status: Tobacco use Status Tobacco use date assessed 12/15/24 12/15/24 12:48 Patient Tobacco Use Status Never used Tobacco 12/15/24 12:48 Tobacco use type Cigarette 12/15/24 12:48 e-Cigarette/Vaping Use Never Used 12/15/24 12:48 PHQ-9: PHQ-9 Score PHQ-9: Total score 0 12/15/24 12:48 Depression Screening Interpretation: Negative Thrive Assessment: Date of Thrive Assessment Date Thrive assessed 12/15/24 12/15/24 12:48 Currently or been in a relationship where the following occur: No concerns reported Const General: cooperative, comfortable, no acute distress and alert Neck Neck: Yes no lymphadenopathy Thyroid: Thyroid normal Resp Effort & Inspection: normal respiratory effort Auscultation: clear to auscultation bilaterally Percussion: percussion normal Cardio Jugular venous distension: no JVD Palpation: normal PMI Rate: regular rate Rhythm: regular rhythm Heart sounds: S1 normal heart sound present and S2 normal heart sound present GI Inspection: Yes normal to inspection Palpation (GI): No hepatosplenomegaly present Skin General skin exam: no rashes or lesions noted Extrem General: Yes no clubbing, cyanosis or edema Coding Level of Care Code Est Pt Level 3 (96832) Diagnoses Hyperlipidemia E78.5 Assessment & Plan Assessment & Plan (1) Hyperlipidemia: Code(s): E78.5 - Hyperlipidemia, unspecified Category: Medical Plan: stable; same rx
[2024-12-15 12:44] VITALS: BP 120/62; PULSE 51; TEMP 36.3; O2SAT 95; BMI 23.5
--- OUTSIDE RECORDS SUMMARY | 2024-12-15 14:58 | XMS_ITS | Clinical Summary ---
Author Organization 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 Screening for malignant neoplasm of colon 2022 History of polyp of colon 01/14/2023 Dysphagia 01/14/2023 Prediabetes 01/09/2022 Osteoarthritis of knee 01/09/2022 Gastroesophageal reflux disease 01/09/2022 Stricture of esophagus 01/09/2022 Chronic kidney disease stage 3 08/06/2021 Erythrocytosis 08/06/2021 Hyperlipidemia 08/06/2021 Stage 3a chronic kidney disease 08/06/2021 Family History Medical History Relation Comments Cancer Father rectal Heart disease Father Relation Status Comments Father Mother Alive Social History Tobacco Use Types Packs/Day Years Used Date Smoking Tobacco: Never Smokeless Tobacco: Never Alcohol Use Standard Drinks/Week Comments Yes 0 (1 standard drink = 0.6 oz pure alcohol) Alcoholic Drinks/day: 1-2 drinks per day Sex and Gender Information Value Date Recorded Sex Assigned at Not on file Legal Sex Male 4:54 PM EST Gender Identity Not on file Sexual Orientation Not on file Last Filed Vital Signs Vital Sign Reading Time Taken Comments Blood Pressure 125/65 01/09/2022 3:04 PM EDT Pulse 74 01/09/2022 3:04 PM EDT Temperature - - Respiratory Rate - - Oxygen Saturation 98% 01/09/2022 3:04 PM EDT Inhaled Oxygen Concentration - - Weight 80.3 kg (177 lb) 01/09/2022 3:04 PM EDT Height 177.8 cm (5' 10 ) 08/06/2021 1:58 PM EDT Body Mass Index 25.4 08/06/2021 1:58 PM EDT Plan of Treatment Health Maintenance Due Date Last Done Comments Pneumococcal Vaccine: 65+ Years (1 of 2 - PCV) 1960 Colorectal Cancer Screening: Annual FOBT 2003 Colorectal Cancer Screening: Sigmoidoscopy 2003 Influenza Vaccine (#1) 2024 Colorectal Cancer Screening: Colonoscopy 10/25/2032 10/25/2022, 10/25/2022 Hepatitis B Vaccine Aged Out No longe r eligible based on patient's age to complete this topic Insurance MEDICARE [facility] MEDICARE [facility] Care Teams Senior Ui Software Engineer Relationship Specialty Start Date End Date Nehemias Cantu MD [address] [place], [place] PCP - General 10/23/20
--- OUTSIDE RECORDS SUMMARY | 2024-12-15 14:58 | XMS_ITS | Patient Health Record ---
Author Organization [facility] Address [address] [place] [address] Care Team Providers Care Driving Teacher Name Role Phone Kota ADEN, Hernesto Primary Care Provider Unavaila Tae Chicas Jr Unavailable Allergies No Known Allergies Reason For Referral No Information Medications Medication SIG (Take, Route, Frequency, Duration) Notes [...] the procedure for 1 day 09/11/2022 Active Immunizations Vaccine Route Administration Date Status Comme nts Influenza Unknown 09/11/2022 Refused Social History Alcohol Screen Question Answer Notes Did you [...] Never (0 point) Points 2 Interpretation Negative Problems Problem Type SNOMED Code ICD Code Onset Dates Problem Status W/U Status Risk Notes Problem 074893047 Colon cancer screening (Z12.11) Active confirmed Problem 712590916 Personal history of colonic polyps (Z86.010) Active confirmed Problem 839302747 Gastroesophageal reflux disease without esophagitis (K21.9) Active confirmed Problem 36595486 Dysphagia, unspecified type (R13.10) Active confirmed Problem 643700548 Schatzki's ring (K22.2) Active confirmed Plan Of Treatment Future Test Test Name Order Date UPPER GI ENDOSCOPY BALLOOON DILATION OF ESOPH 10/28/2012 UPPER GI ENDOSCOPY BALLOOON DILATION OF ESOPH 05/16/2017 COLONOSCOPY 05/16/2017 COLONOSCOPY 09/11/2022 Insurance Providers Payer Name Payer Address Payer Phone Subscriber Number Group Number Insured Name Patient Relationship to Insured Coverage Start Date Coverage End Date MEDICARE OF [place] [address] [place] [address] [id number] CHAVA RAMIREZ Self - patient is the insured [facility] [address] [place] [address] [id number] CHAVA RAMIREZ Self - patient is the insured Medical (General) History Medical History History ICD Code EGD in 08/13/17, Vale mc g, dilated to 20 mm, biopsies negative for Quiroz's/H. pylori Gastroesophageal reflux disease Colonoscopy 06/25/17, negativ e, five-year followup for history of colon polyps. Chronic kidney disease Elevated PSA Elevated cholesterol Surgical History Surgery Date(Month/Year) Bilateral inguinal hernia repair Left knee replacement
== END 2024-12-15 13:02 | disposition home or self-care (01) ==
LOC: HO.HMCH 12:39
PROVIDERS: PCP Internal Medicine; Visit Provider Internal Medicine
DX: E78.5 Hyperlipidemia, unspecified (principal)

== ENCOUNTER 2024-12-15 12:39 | Outpatient (REF) | payer MEDICARE, OTHER, SELFPAY ==
--- OUTSIDE RECORDS SUMMARY | 2024-12-15 15:33 | XMS_ITS | Clinical Summary ---
Author Organization [facility] Facility Address [address] [address] Care Team Providers Care Sterilizer Machine Operator Name Role Phone Nehemias Cantu MD Primary Care Provider [phone] Allergies No known active allergies Medications rosuvastatin [...] age to complete this topic Insurance MEDICARE [facility] MEDICARE [facility] Care Teams Sterilizer Machine Operator Relationship Specialty Start Date End Date Nehemias Cantu MD [address] [place], [place] PCP - General 10/23/20
[2024-12-15 20:27] LABS: Cholesterol 155 mg/dL (<200); HDL Cholesterol 53 mg/dL (>40); LDL Cholesterol Calculated 90 mg/dL (<100); Triglycerides 64 mg/dL (<150)
== END 2024-12-15 12:40 | disposition home or self-care (01) ==
LOC: HO.LAB 12:39
PROVIDERS: PCP Internal Medicine; Visit Provider Internal Medicine
DX: E78.5 Hyperlipidemia, unspecified (principal); Z13.220 Encounter for screening for lipoid disorders
CPT/HCPCS: 36415; 80061; 99212

== ENCOUNTER 2025-04-18 10:53 | Outpatient (REF) | payer MEDICARE, OTHER, SELFPAY ==
--- OUTSIDE RECORDS SUMMARY | 2025-04-18 11:52 | XMS_ITS | Patient Health Record ---
Author Organization [facility] Address [address] [place] [address] Care Team Providers Care Tubing Drier Name Role Phone Kota ADEN, Hernesto Primary Care Provider Unavaila Tae Chicas Jr Unavailable [phone] Allergies No Known Allergies Reason For Referral [...] Problem Status W/U Status Risk Notes Problem 327057301 Colon cancer screening (Z12.11) Active confirmed Problem 112396421 Personal history of colonic polyps (Z86.010) Active confirmed Problem 831128156 Gastroesophageal reflux disease without esophagitis (K21.9) Active confirmed Problem 78257270 Dysphagia, unspecified type (R13.10) Active confirmed Problem 257650905 Schatzki's ring (K22.2) Active confirmed Plan Of [...] Date MEDICARE OF [place] [address] [place] [address] [id number] CHAVA RAMIREZ Self - patient is the insured [facility] [address] [place] [address] [phone] [id number] CHAVA RAMIREZ Self - patient is the [...]
--- OUTSIDE RECORDS SUMMARY | 2025-04-18 11:52 | XMS_ITS | Clinical Summary ---
Author Organization [facility] Facility Address [address] [address] Care Team Providers Care Alligator Hunter Name Role Phone Nehemias Cantu MD Primary Care Provider [phone] Allergies No known active allergies Medications rosuvastatin [...] Due Date Last Done Comments Pneumococcal Vaccine: 50+ Years (1 of 2 - PCV) 1973 Colorectal Cancer Screening: Annual FOBT 2003 Colorectal Cancer Screening: Sigmoidoscopy 2003 Influenza Vaccine (#1) 2025 Colorectal Cancer Screening: Colonoscopy 10/25/2032 10/25/2022, 10/25/2022 Hepatitis B Vaccine Aged Out No longe r eligible based on patient's age to complete this topic Insurance Medicare [facility] Medicare [facility] Care Teams Alligator Hunter Relationship Specialty Start Date End Date Nehemias Cantu MD [address] [place], [place] PCP - General 10/23/20
[2025-04-18 12:55] LABS: Prostate Specific Antigen 9.19 ng/mL (<0.05-4.0)
== END 2025-04-18 10:54 | disposition home or self-care (01) ==
LOC: HO.LAB 10:53
PROVIDERS: PCP Internal Medicine; Visit Provider Urology
DX: R97.20 Elevated prostate specific antigen [PSA] (principal)
CPT/HCPCS: 36415; 84153

== ENCOUNTER 2025-04-21 08:43 | Outpatient (AMB) | payer MEDICARE, OTHER, SELFPAY ==
--- NOTE | 2025-04-21 08:46 | MHC.OFFVIS ---
Intake Visit Reasons: 6m/PSA Intake Note: Patient is present for 6M FOLLOW UP PSA 04/18/25 : 9.19 PVR:28 [facility] Urology Medication:NONE Antibiotic Allergy:NONE Blood Thinner:NONE Concrete Mixer Operator Helper Required: No Accompanied by: Self / Same As Patient Allergies No Known Allergies Allergy (Verified 04/21/25 08:47) HPI Comments Details: Michael is a pleasant male. He is a patient of Dr. Escudero. He seen for the following urologic conditions - elevated PSA Six-month follow-up Significant jump in PSA Recommend prostate MRI Has been doing renovation on house in [place] involving a lot of heavy digging Elevated PSA Slow rise No reported family history - father had enlarged prostate PSA had declined with daily finasteride - however had libido issues 12/04 4.0, 06/03 4.6, 11/04 4.6 24%, 05/04 2.9, 11/05 4.2, 01/03 3.1, 05/06 9 EndoDX 08/05 55 Imaging 40 g prostate Prostate Biopsy 10/05 - would prefer sedation if required [facility] Medical History Elevated PSA Hx of chronic kidney disease GERD (gastroesophageal reflux disease) BPH (benign prostatic hyperplasia) Hyperlipidemia Surgical History Hx of colonoscopy Hx of esophagogastroduodenoscopy History of left knee replacement History of hernia surgery Family History Mother Acute arthritis Father No problems noted. Social History Housing: House Alcohol intake: current Alcohol intake frequency: a few times a week Alcohol type: beer Patient Tobacco Use Status: Never used Tobacco Tobacco use type: Cigarette e-Cigarette/Vaping Use: Never Used Second Hand Smoke Exposure: No service: No Current occupational status: retired Cognitive needs: No Hearing needs: No Vision needs: Yes (Glasses) Review of Systems Const Denies chills and Denies fever(s) Card Reports no additional complaints and Denies syncope Resp Denies cough GI Denies abdominal pain and Denies heartburn Reports as per HPI and Denies change in libido Neuro Denies syncope Psych Denies change in libido Endo Denies change in libido Physical Exam Const General: cooperative, healthy appearing, comfortable and no acute distress Orientation/consciousness: patient oriented x3 HEENT Face and sinus: Yes normal facial exam Mouth: moist mucous membranes Neck Neck: Yes normal visual inspection, Yes full ROM and Yes trachea midline Chest Chest palpation & inspection: normal inspection of the chest Resp Effort & Inspection: normal respiratory effort, able to speak in complete sentences and no respiratory distress GI Inspection: Yes normal to inspection Back/Spine/Pelvis Cervical Spine: normal cervical lordosis Thoracic/Lumbar Spine: thoracic and lumbar spine normal to inspection Skin General skin exam: no rashes or lesions noted Neuro General: patient oriented x3, gait normal, tone normal and moves all extremities Extrem General: Yes normal to inspection and Yes capillary refill normal Assessment & Plan Assessment & Plan (1) Elevated PSA: Code(s): R97.20 - Elevated prostate specific antigen [PSA] Category: Medical Plan 1. Elevated Prostate-Specific Antigen (Psa) - Prostate MRI scheduled. - PSA retest in one month. Discussion Notes I discussed with the patient that his PSA level had increased to 9, which was unexpected given his recent negative biopsy. I explained that physical activity might have contributed to the elevated PSA and recommended a prostate MRI to further investigate. We agreed to repeat the PSA test in a month and follow up with a phone call in two months to discuss the results. Patient Instructions - Schedule and complete the prostate MRI as soon as possible. - Avoid heavy physical activity for a week before the next PSA test. - Plan to have the PSA test repeated in one month. - Expect a follow-up phone call in two months to discuss results. Orders: Orders PSA,Total (Free>4and<10) 2 Months R97.20 - Elevated prostate specific antigen [PSA] MR Prostate wo/w con Today R97.20 - Elevated prostate specific antigen [PSA] Patient Instructions: This note is constructed using voice recognition software. While every effort has been made to ensure accuracy government professor errors may have been included. Imaging studies, laboratory and physical exam results were discussed and reviewed in detail. No major barriers to patient understanding were identified. An opportunity to ask questions regarding the treatment plan was provided. All questions were answered. The patient expressed understanding and agreement with the above treatment plan. The patient is aware they should contact our office by phone for worsening of their current condition or the appearance of new urologic symptoms. Compliance is encouraged with any medications and followup testing that is ordered. It is a privilege to participate in the urologic care of your patient. If you have any questions or concerns regarding treatment for the above conditions, or other urologic issues, please do not hesitate to contact me. The office telephone contact is [phone]. Sincerely, Dr Parth Nova MD, [facility] - Urology Compassionate Specialist Care for the Genitourinary System Coding Level of Care Code Est Pt Level 4 (55584) Diagnoses Elevated PSA R97.20
--- OUTSIDE RECORDS SUMMARY | 2025-04-21 08:58 | XMS_ITS | Clinical Summary ---
Author Organization [facility] Facility Address [address] [address] Care Team Providers Care Vending Route Driver Name Role Phone Nehemias Cantu MD Primary Care Provider [phone] Allergies No known active allergies Medications rosuvastatin [...] complete this topic Insurance Medicare [facility] Medicare [facility] Care Teams Vending Route Driver Relationship Specialty Start Date End Date Nehemias Cantu MD [address] [place], [place] PCP - General 10/23/20
--- OUTSIDE RECORDS SUMMARY | 2025-04-21 08:58 | XMS_ITS | Patient Health Record ---
Author Organization [facility] Address [address] [place] [address] Care Team Providers Care Basket Mender Name Role Phone Kota ADEN, Hernesto Primary Care Provider Unavaila Tae Chicas Jr Unavailable [phone] Allergies No Known Allergies Reason For [...] Problem Status W/U Status Risk Notes Problem 672827349 Colon cancer screening (Z12.11) Active confirmed Problem 737121109 Personal history of colonic polyps (Z86.010) Active confirmed Problem 283234037 Gastroesophageal reflux disease without esophagitis (K21.9) Active confirmed Problem 11417217 Dysphagia, unspecified type (R13.10) Active confirmed Problem 026974408 Schatzki's ring (K22.2) Active confirmed Plan Of [...] Date MEDICARE OF [place] [address] [place] [address] [id number] CHAVA RAMIREZ Self - patient is the insured [facility] [address] [place] [address] [phone] [id number] CHAVA RAMIREZ Self - patient is the [...]
== END 2025-04-21 09:40 | disposition home or self-care (01) ==
LOC: HO.HUSH 08:44
PROVIDERS: PCP Internal Medicine; Visit Provider Urology
DX: Z13.9 Encounter for screening, unspecified (principal); R97.20 Elevated prostate specific antigen [PSA]
CPT/HCPCS: 99214

== ENCOUNTER → 2025-04-21 08:43 | Outpatient (BNVA) | payer MEDICARE, OTHER, SELFPAY | PROVIDERS: PCP Internal Medicine; Visit Provider Urology | DX: R97.20 Elevated prostate specific antigen [PSA] (principal) | CPT/HCPCS: 51798; 81003; 99212 ==

== ENCOUNTER 2025-06-10 08:56 | Outpatient (REF) | payer MEDICARE, OTHER, SELFPAY ==
--- NOTE | ~2025-06-10 | MR_ITS ---
EXAMINATION: MR PROSTATE WITHOUT THEN WITH IV CONTRAST, MR EXAM UNLISTED HISTORY: R97.20 - Elevated prostate specific antigen [PSA] TECHNIQUE: 1.5T body coil survey of the pelvis was performed. Phase array coil imaging of the prostate was performed in multiplanar high resolution axial, coronal, sagittal fast spin echo T2 and axial T1 weighted imaging sequences. Axial diffusion imaging at intermediate and high field performed with ADC mapping. Next, mL Gadavist was given by intravenous infusion, and dynamic axial imaging performed. 3-D reconstructions and post-processing were performed on an independent workstation by the radiologist for biopsy planning using image fusion. COMPARISON: There are no prior studies available for comparison. CLINICAL DATA: Most recent PSA: 9.19 ng/mL on 04/18/2025. PSA Density: 0.22 ng/mL squared Prostate Biopsy: Negative biopsy on 09/30/2024. FINDINGS: Prostate size: 4.7 x 5.0 x 3.4 cm. Calculated prostate volume is 41.5 mL. Hemorrhage: None. Transitional Zone: There is moderate heterogeneous nodular hypertrophy of the transitional zone. There is an area of interest in the transitional zone as described below: Area of interest #1: Location: Anterior transitional zone in the mid gland/apex measuring approximately 10 mm (series 7, images 16-19). DWI PI-RADS v2.1 score: 4 T2 PI-RADS v2.1 score: 4 DCE PI-RADS v2.1 score: + Overall PI-RADS v2.1 score: 4 Capsular contact: yes Extracapsular extension: None Seminal vesicle invasion: None Neurovascular bundle involvement: None Peripheral Zone: There are scattered linear ill-defined T2 hypointense foci in the peripheral zone which can be seen in the setting of prostatitis of scarring. No areas of the diffusion restriction are noted. Seminal Vesicles/Ejaculatory Ducts: Symmetric and normal in signal and caliber. Pelvic Lymph Nodes: No obturator or internal iliac lymph nodes meeting size criteria for adenopathy. Marrow Signal: Normal marrow signal and enhancement without focal lesion identified. MR/MR Prostate wo/w con IMPRESSION: Focus of abnormal signal intensity in the anterior aspect of the transitional zone as described, suspicious for clinically significant prostate carcinoma. PI-RADS 4: High (clinically significant cancer is likely to be present) PI-RADS Assessment Categories PI-RADS 1: Very low (clinically significant cancer is highly unlikely to be present) PI-RADS 2: Low (clinically significant cancer is unlikely to be present) PI-RADS 3: Intermediate (the presence of clinically significant cancer is equivocal) PI-RADS 4: High (clinically significant cancer is likely to be present) PI-RADS 5: Very high (clinically significant cancer is highly likely to be present) [employer]. MR Prostate Imaging Reporting and Data System version 2.1. [email or web address] Electronically signed by: Doni Womack MD 06/10/2025 10:58 AM EDT
--- OUTSIDE RECORDS SUMMARY | 2025-06-10 09:47 | XMS_ITS | Patient Health Record ---
Author Organization [facility] Address [address] [place] [address] Care Team Providers Care Locomotive Crane Engineer Name Role Phone Kota ADEN, Hernesto Primary Care Provider Unavaila Tae Chicas Jr Unavailable [phone] Allergies No Known Allergies Reason For [...] Problem Status W/U Status Risk Notes Problem 885037229 Colon cancer screening (Z12.11) Active confirmed Problem 356738607 Personal history of colonic polyps (Z86.010) Active confirmed Problem 180403766 Gastroesophageal reflux disease without esophagitis (K21.9) Active confirmed Problem 45400443 Dysphagia, unspecified type (R13.10) Active confirmed Problem 033558773 Schatzki's ring (K22.2) Active confirmed Plan Of [...] MEDICARE OF [place] [address] [facility] [place] [address] [phone] [id number] CHAVA RAMIREZ Self - patient is the insured [facility] [address] [place] [address] [id number] CHAVA RAMIREZ Self - patient is the [...]
--- OUTSIDE RECORDS SUMMARY | 2025-06-10 09:47 | XMS_ITS | Clinical Summary ---
Author Organization [facility] Address [address] [place] [address] Phone Care Team Providers Care Pcu Rn Name Role Phone Hernesto Escudero MD Primary Care Provider [phone] Social History Tobacco Use Types Packs/Day Years Used Date Smoking Tobacco: Never Assessed Education Answer Date Recorded Are you interested in more education? Not on kaley e 02/07/2023 Are you concerned about learning? Not on file 02/07/2023 No 02/07/2023 No 02/07/2023 Digital Access Answer Date Recorded No 03/08/2023 No 03/08/2023 No 03/08/2023 Reliable internet access at home? Not on file 03/08/2023 Device with a working camera? Not on file Sex and Gender Information Value Date Recorded Sex Assigned at Not on file Legal Sex Male 10:17 AM EDT Gender Identity Not on file Sexual Orientation Not on file Plan of Treatment Health Maintenance Due Date Last Done Comments LIPID PANEL 1954 DEPRESSION SCREENING 1966 SMOKING Hx and SMOKELESS TOBACCO SCREENING 1967 HEPATITIS C SCREENING 1972 COLOGUARD 1999 COLONOSCOPY 1999 COLORECTAL CANCER SCREENING 1999 FIT TEST 1999 FOBT 1999 SIGMOIDOSCOPY 1999 VIRTUAL COLONOSCOPY 1999 PNEUMOCOCCAL VACCINES (50+ years) (1 of 1 - PCV) 2004 ZOSTER VACCINES (1 of 2) 2004 Adult Td,Tdap Booster 11/12/2023 11/12/2013 COVID-19 VACCINE (3 - 2023-2 5 season) 2024 01/17/2021, 12/20/2020 INFLUENZA VACCINE (#1) 2025 08/10/2020 RSV VACCINE (1 - 1-dose 75+ series) 2029 HEPATITIS A VACCINES Aged Out No long er eligible based on patient's age to complete this topic HIB VACCINES Aged Out No longer eligi ble based on patient's age to complete this topic MENINGOCOCCAL VACCINES (ACWY) Aged Out No longer eligible based on patient's age to complete this topic MENINGOCOCCAL VACCINES (B) Aged Out N o longer eligible based on patient's age to complete this topic Medical Devices Not on file Insurance MEDICARE PART A & B [facility] MEDICARE SUPPLEMENT MEDICARE PART A & B MEDICARE SUPPLEMENT MEDICARE PART A & B MEDICARE SUPPLEMENT MEDICARE PART A & B MEDICARE SUPPLEMENT MEDICARE PART A & B Member Subscriber Plan / Payer (Ef fective 2019-Present) Name:Oliver Narvaez Member ID:[id number] Relation to Subscriber:Self Name:Oliver Narvaez Subscriber ID:[id number] Payer ID:[id number] Group ID:Not on file Type:Medicare Address: [employer] [address] [place] [address] [place] [address] MEDICARE SUPPLEMENT MEDICARE PART A & B MEDICARE SUPPLEMENT MEDICARE PART A & B MEDICARE SUPPLEMENT MEDICARE PART A & B Member Subscriber Plan / Payer (Ef fective 2019-) Name:Oliver Narvaez Member ID:[id number] Relation to Subscriber:Self Name:SolangeOliver Subscriber ID:[id number] Payer ID:[id number] Group ID:Not on file Type:Medicare Address: [employer]. [place] [id number] MEDICARE SUPPLEMENT MEDICARE PART A & B [facility] MEDICARE SUPPLEMENT Care Teams Pcu Rn Relationship Specialty Start Date End Date Hernesto Escudero MD [address] [place] [address] [address] [place] [address] PCP - General Internal Medicine 12/27/20 Additional Source Comments The information contained in this document represents components of the legal health record. It is not the complete legal health record.[facility]
--- OUTSIDE RECORDS SUMMARY | 2025-06-10 09:47 | XMS_ITS | Clinical Summary ---
Author Organization [facility] Facility Address [address] [address] Care Team Providers Care Emergency Vehicle Driver Name Role Phone Nehemias Cantu MD Primary Care Provider [phone] Allergies No known active allergies Medications rosuvastatin [...] age to complete this topic Insurance Medicare [facility] Medicare [facility] Care Teams Emergency Vehicle Driver Relationship Specialty Start Date End Date Nehemias Cantu MD [address] [place], [place] PCP - General 10/23/20
[2025-06-10 12:49] LABS: PSA,Total (Free>4and<10) 8.43 ng/mL (0.00-4.00)
[2025-06-14 13:47] LABS: Free Prostate Spec Ag 1.0 ng/mL; Percent Free Prostate Spec Ag 14 % (calc) (>25)
== END 2025-06-10 08:57 | disposition home or self-care (01) ==
LOC: HO.MRI 08:56
PROVIDERS: Urology; PCP Internal Medicine; Visit Provider Psychiatry & Neurology Neurology
DX: R97.20 Elevated prostate specific antigen [PSA] (principal); Z12.5 Encounter for screening for malignant neoplasm of prostate
CPT/HCPCS: 36415; 72197; 76377; 84153; 84154; A9585

== ENCOUNTER → 2025-06-10 09:07 | Outpatient (BNV) | payer MEDICARE, OTHER, SELFPAY | PROVIDERS: PCP Internal Medicine; Visit Provider Radiology Diagnostic Radiology | DX: R97.20 Elevated prostate specific antigen [PSA] (principal) | CPT/HCPCS: 72197; 76377 ==

== ENCOUNTER 2025-06-14 10:07 | Outpatient (REF) | payer MEDICARE, OTHER, SELFPAY ==
[2025-06-14 12:55] LABS: Alanine Aminotransferase 32 U/L (0-40); Albumin Level 4.6 g/dL (3.5-5.0); Alkaline Phosphatase 65 U/L (39-117); Anion Gap 12 (12-20); Aspartate Amino Transferase 27 U/L (5-37); Blood Urea Nitrogen 23 mg/dL (9-16); Calcium 9.3 mg/dL (8.4-10.2); Carbon Dioxide 29 mmol/L (22-29); Chloride 103 mmol/L (96-108); Cholesterol 212 mg/dL (<200); Estimated Glomerular Filt Rate 46; HDL Cholesterol 58 mg/dL (>40); Potassium 4.1 mmol/L (3.3-5.1); Sodium 140 mmol/L (135-145); Total Protein 6.8 g/dL (6.5-8.0); Triglycerides 113 mg/dL (<150)
== END 2025-06-14 10:08 | disposition home or self-care (01) ==
LOC: HO.LAB 10:07
PROVIDERS: PCP Internal Medicine; Visit Provider Internal Medicine
DX: E78.00 Pure hypercholesterolemia, unspecified (principal); N40.0 Benign prostatic hyperplasia without lower urinary tract symptoms; K21.9 Gastro-esophageal reflux disease without esophagitis; Z79.899 Other long term (current) drug therapy
CPT/HCPCS: 36415; 80053; 80061; 96127; 99212

== ENCOUNTER 2025-06-14 10:07 | Outpatient (AMB) | payer MEDICARE, OTHER, SELFPAY ==
[2025-06-14 10:09] VITALS: BP 150/76; PULSE 60; RESP 18; TEMP 36.2; O2SAT 98; BMI 23.0
--- NOTE | 2025-06-14 10:09 | A.OFFPC_ITS ---
Vital Signs 06/14/25 10:09 Height 5 ft 11 in Weight 165 lb BMI 23.0 BP 150/76 H Blood Pressure Location Lt brachial Position Sitting Respiration 18 Pulse 60 Pulse Source Pulse Oximeter Temp 97.1 F Temp Source Temporal Artery Scan Pulse Oximetry (%) 98 Oxygen Delivery Method Room Air Intake Visit Reasons: 6 Month F/U PRADEEP Escudero Debt Management Counselor Required: No Accompanied by: Self / Same As Patient Allergies No Known Allergies Allergy (Verified 06/16/25 10:49) Medication List - Last Reconciled 06/14/25 by Vincent Rahman MD famotidine (Pepcid) 20 mg PO DAILY magnesium citrate,mag oxide mg PO rosuvastatin 10 mg PO BEDTIME sodium fluoride-pot nitrate 1.1-5 % PO Q3D Tobacco use date assessed: 06/14/25 Fall risk assessment: No Falls in past year Last assessed Fall Risk: 06/14/25 Dental Screening Dental Screen Date: 06/14/25 Did you have a dental visit in the last 12 months?: Yes Did you have a dental problem in the last 6 months where you did not have access to dental care?: No Was dental information given to patient?: Patient has dentist HPI 6 Month F/U PRADEEP Escudero HPI Details Patient comes in today for his follow up visit - is transferring over from Dr. Escudero, who retired from the practice a few months ago States that he feels okay He denies any headaches or dizziness Denies any chest pains, no increased shortness of breath No nausea/vomiting, no abdominal pain No change in bowel habits noted Patient recently noticed a dark mole/lesion on the left side of his torso along the posterior axillary line, just a few inches under his left axilla and would like to see if this needs to be checked out by dermatology further [facility] Medical History (Updated 06/20/25 @ 05:56 by Vincent Rahman MD) Elevated PSA Hx of chronic kidney disease GERD (gastroesophageal reflux disease) BPH (benign prostatic hyperplasia) Hyperlipidemia Surgical History Hx of colonoscopy Hx of esophagogastroduodenoscopy History of left knee replacement History of hernia surgery Family History Mother Acute arthritis Father No problems noted. Social History Housing: House Alcohol intake: current Alcohol intake frequency: a few times a week Alcohol type: beer Patient Tobacco Use Status: Never used Tobacco Tobacco use type: Cigarette e-Cigarette/Vaping Use: Never Used Second Hand Smoke Exposure: No service: No Current occupational status: retired Cognitive needs: No Hearing needs: No Vision needs: Yes (Glasses) Questionnaire PHQ-9 Over the last 2 weeks, how often have you been bothered by any of the following problems? 1. Little interest or pleasure in doing things: not at all 2. Feeling down, depressed, or hopeless: not at all 3. Trouble falling or staying asleep, or sleeping too much: not at all 4. Feeling tired or having little energy: not at all 5. Poor appetite or overeating: not at all 6. Feeling bad about yourself - or that you are a failure or have let yourself or your family down: not at all 7. Trouble concentrating on things, such as reading the newspaper or watching television: not at all 8. Moving or speaking so slowly that other people could have noticed. Or the op posite - being so fidgety or restless that you have been moving around a lot more than usual: not at all 9. Thoughts that you would be better off or of hurting yourself in some way: not at all Total score: 0 Depression Screening Interpretation: Negative Depression Screening Done: Yes 33543 - PHQ-9 Billing: Yes Source: Developed by Drs. Doni Mann, Bettina Orellana, Jn Palumbo and colleagues, with an educational gato from [employer]. Thrive Questionnaire Date Thrive assessed: 06/14/25 I am a: Patient What is your living situation today?: I have a steady place to live Within the past 12 months, did the food you bought not last and you didn't have the money to get more?: Never true Within the past 12 months, did you worry whether your food would run out before you got money to buy more?: Never true Do you have trouble paying for medicines?: No Do you have trouble getting transportation to medical appointments?: No Do you have trouble paying your heating and electricity bill?: No Do you have trouble taking care of your child, family member or friend?: No Do you have trouble with day-to-day activities such as bathing, preparing meals, shopping, managing finances, etc.?: No Are you currently unemployed and looking for a job?: No Are you interested in more education?: No Please select the resources that you would like help with: None Currently or been in a relationship where the following occur: No concerns reported THRIVE Score: 0 AUDIT C Alcohol Use Questionnaire (AUDIT-C) 1. How often do you have a drink containing alcohol?: 2-4 times a month 2. How many drinks containing alcohol do you have on a typical day when you are drinking?: 1 or 2 3. How often do you have six or more drinks on one occasion?: Never Total Score: 2 Score Reviewed/Action Taken: Yes RONALDO-7 AMB Questionnaire RONALDO-7 Date RONALDO - 7 assessed: 06/14/25 Feeling nervous, anxious, or on edge: 0 = Not at all Not being able to stop or control worryin = Not at all Worrying too much about different things: 0 = Not at all Trouble relaxin = Not at all Being so restless that it is hard to sit still: 0 = Not at all Becoming easily annoyed or irritable: 0 = Not at all Feeling afraid as if something awful might happen: 0 = Not at all Total RONALDO-7 score (0-4 normal; 5-9 mild; 10-14 moderate; 15-21 severe): 0 Source: Developed by Drs. Doni Mann, Bettina Orellana, Jn Palumbo and colleagues, with an educational gato from [employer]. Review of Systems Const Denies chills, Denies fatigue, Denies fever(s) and Denies headache(s) ENT Denies dysphagia, Denies dizziness, Denies otalgia, Denies headache(s), Denies neck pain, Denies odynophagia and Denies sore throat Card Denies chest pain, Denies palpitations and Denies dyspnea Resp Denies chest congestion, Denies cough and Denies dyspnea GI Denies abdominal pain, Denies constipation, Denies dysphagia, Denies heartburn, Denies diarrhea, Denies nausea, Denies odynophagia and Denies vomiting Denies difficulty urinating, Denies dysuria, Denies nocturia and Denies urinary frequency Musc Denies back pain and Denies neck pain Skin/Breast Reports as per HPI and Denies rash Neuro Denies dizziness and Denies headache(s) Endo Denies fatigue and Denies palpitations Physical exam (Primary Care) Vital Signs: Last Vital Signs Temp 97.1 F 06/14/25 10:09 Pulse 60 06/14/25 10:09 Resp 18 06/14/25 10:09 BP 150/76 H 06/14/25 10:09 Pulse Ox 98 06/14/25 10:09 Oxygen Delivery Method Room Air 06/14/25 10:09 BMI result Body Mass Index 23.0 Tobacco/Smoking Status: Tobacco use Status Tobacco use date assessed 06/14/25 06/14/25 10:16 Patient Tobacco Use Status Never used Tobacco 06/14/25 10:16 Tobacco use type Cigarette 06/14/25 10:16 e-Cigarette/Vaping Use Never Used 06/14/25 10:16 PHQ-9: PHQ-9 Score PHQ-9: Total score 0 06/14/25 10:43 Depression Screening Interpretation: Negative Thrive Assessment: Date of Thrive Assessment Date Thrive assessed 06/14/25 06/14/25 10:16 Currently or been in a relationship where the following occur: No concerns reported Const General: no acute distress and alert HENMT Ears: TM's normal bilaterally and EAC's normal Throat: Yes posterior oropharynx normal and Yes tonsils normal (no TP congestion) Neck Neck: Yes supple and No lymphadenopathy Thyroid: Thyroid normal Resp Auscultation: clear to auscultation bilaterally, no rales and no wheezes Cardio Rate: regular rate Rhythm: regular rhythm Heart sounds: no murmurs GI Palpation (GI): Soft to palpation and nontender Auscultation: normal bowel sounds General: Yes no CVA tenderness Back/Spine/Pelvis Back: no CVA tenderness Thoracic/Lumbar Spine: No lumbar spinal tenderness Skin Other: (+) dark mole/lesion on the left side of his torso along the posterior axillary line, just a few inches under his left axilla a Rashes: no rashes Extrem General: Yes no clubbing, cyanosis or edema Coding Level of Care Code Est Pt Level 4 (93737) Diagnoses Pure hypercholesterolemia E78.00 Hyperlipidemia type: pure hypercholesterolemia Benign prostatic hyperplasia, unspecified whether lower urinary tract symptoms present N40.0 Lower urinary tract symptom presence: unspecified whether lower urinary tract symptoms present Gastroesophageal reflux disease without esophagitis K21.9 Esophagitis presence: without esophagitis Additional Codes PHQ-9 - 63823 - PHQ-9 Billing: Yes ([id number]) Assessment & Plan Assessment & Plan (1) Hyperlipidemia: Code(s): E78.5 - Hyperlipidemia, unspecified Category: Medical Qualifiers: Hyperlipidemia type: pure hypercholesterolemia Qualified Code(s): E78.00 - Pure hypercholesterolemia, unspecified Plan: Reinforced low cholesterol diet As it has been a while since he last had his cholesterol levels checked, would like to get some labs done to update this Continue Rosuvastatin 10 mg QD Will have patient recheck his labs and fasting lipids again in 6 months (2) BPH (benign prostatic hyperplasia): Code(s): N40.0 - Benign prostatic hyperplasia without lower urinary tract symptoms Category: Medical Qualifiers: Lower urinary tract symptom presence: unspecified whether lower urinary tract symptoms present Qualified Code(s): N40.0 - Benign prostatic hyperplasia without lower urinary tract symptoms Plan: Follow up with urology as scheduled (3) GERD (gastroesophageal reflux disease): Code(s): K21.9 - Gastro-esophageal reflux disease without esophagitis Category: Medical Qualifiers: Esophagitis presence: without esophagitis Qualified Code(s): K21.9 - Gastro-esophageal reflux disease without esophagitis Plan: Dietary restrictions reinforced Continue Famotidine 20 mg QD PRN Plan Follow up in 6 months Orders: Orders Comprehensive [place]. Panel Fast 06/14/25 E78.00 - Pure hypercholesterolemia, unspecified Lipid Panel 06/14/ E78.00 - Pure hypercholesterolemia, unspecified Comprehensive [place]. Panel Fast 6 Months E78.00 - Pure hypercholesterolemia, unspecified Vitamin D 25-OH Total 6 Months E55.9 - Vitamin D deficiency, unspecified Complete Blood Count Auto Diff 6 Months D64.9 - Anemia, unspecified Lipid Panel 6 Months E78.00 - Pure hypercholesterolemia, unspecified TSH reflex Free T4 6 Months E78.00 - Pure hypercholesterolemia, unspecified UA CC w/rflx Micro + Cult 6 Months R30.0 - Dysuria
--- OUTSIDE RECORDS SUMMARY | 2025-06-14 11:32 | XMS_ITS | Clinical Summary ---
Author Organization [facility] Address [address] [place] [address] Phone Care Team Providers Care Elevators Inspector Name Role Phone Hernesto Escudero MD Primary Care Provider [phone] Social History Tobacco Use Types Packs/Day Years [...] 2) 2004 Adult Td,Tdap Booster 11/12/2023 11/12/2013 INFLUENZA VACCINE (#1) 2025 08/10/2020 COVID-19 VACCINE (3 - 2024-2 6 season) 2025 01/17/2021, 12/20/2020 RSV VACCINE (1 - 1-dose 75+ series) [...] file Insurance MEDICARE PART A & B [facility] MEDICARE SUPPLEMENT MEDICARE PART A & B MEDICARE SUPPLEMENT MEDICARE PART A & B MEDICARE SUPPLEMENT MEDICARE PART A & B MEDICARE SUPPLEMENT MEDICARE PART A & B Member Subscriber Plan / Payer (Ef fective 2019-Present) Name:Oliver Narvaez Member ID:[id number] Relation to Subscriber:Self Name:Oliver Narvaez Subscriber ID:[id number] Payer ID:[id number] Group ID:Not on file Type:Medicare Address: [employer] [address] [place] [address] [place] [address] MEDICARE SUPPLEMENT MEDICARE PART A & B MEDICARE SUPPLEMENT MEDICARE PART A & B MEDICARE SUPPLEMENT MEDICARE PART A & B Member Subscriber Plan / Payer (Ef fective 2019-) Name:Oliver Narvaez Member ID:[id number] Relation to Subscriber:Self Name:SolangeOliver Subscriber ID:[id number] Payer ID:[id number] Group ID:Not on file Type:Medicare Address: [employer] [place] [id number] MEDICARE SUPPLEMENT MEDICARE PART A & B [facility] MEDICARE SUPPLEMENT Care Teams Elevators Inspector Relationship Specialty Start Date End Date Hernesto Escudero MD [address] [place] [address] [address] [place] [address] PCP - General Internal Medicine 12/27/20 Additional Source Comments The information contained in this document represents components of the legal health record. It is not the complete legal health record.[facility]
--- OUTSIDE RECORDS SUMMARY | 2025-06-14 11:32 | XMS_ITS | Patient Health Record ---
Author Organization [facility] Address [address] [place] [address] Care Team Providers Care Road Engineer Freight Name Role Phone Kota ADEN, Hernesto Primary Care Provider Unavaila Tae Chicas Jr Unavailable [phone] Allergies No Known Allergies Reason For [...] Problem Status W/U Status Risk Notes Problem [id number] Colon cancer screening (Z12.11) Active confirmed Problem [id number] Personal history of colonic polyps (Z86.010) Active confirmed Problem [id number] Gastroesophageal reflux disease without esophagitis (K21.9) Active confirmed Problem 74190649 Dysphagia, unspecified type (R13.10) Active confirmed Problem [id number] Schatzki's ring (K22.2) Active confirmed Plan Of [...] Date MEDICARE OF [place] [address] [place] [address] [phone] [id number] CHAVA RAMIREZ Self - patient is the insured [facility] [address] [place] [address] [phone] [id number] CHAVA RAMIREZ Self - patient is the [...]
--- OUTSIDE RECORDS SUMMARY | 2025-06-14 11:32 | XMS_ITS | Clinical Summary ---
Author Organization [facility] Address [address] [address] Care Team Providers Care Nurse Sitter Name Role Phone Nehemias Cantu MD Primary Care Provider [phone] Allergies No known active allergies Medications rosuvastatin [...] age to complete this topic Insurance Medicare [facility] Medicare [facility] Care Teams Nurse Sitter Relationship Specialty Start Date End Date Nehemias Cantu MD [address] [place], [place] PCP - General 10/23/20
== END 2025-06-14 10:56 | disposition home or self-care (01) ==
LOC: HO.HMCH 10:08
PROVIDERS: PCP Internal Medicine; Visit Provider Internal Medicine
DX: E78.00 Pure hypercholesterolemia, unspecified (principal); N40.0 Benign prostatic hyperplasia without lower urinary tract symptoms; K21.9 Gastro-esophageal reflux disease without esophagitis

== ENCOUNTER 2025-06-16 10:46 | Outpatient (AMB) | payer MEDICARE, OTHER, SELFPAY ==
--- NOTE | 2025-06-16 10:47 | MHC.OFFVIS ---
Intake Visit Reasons: 2 mo MRI /PSA Intake Note: Patient is present for 2M FOLLOW UP PSA 06/10/25 : 8.43 Urology Medication:NONE Antibiotic Allergy:NONE Blood Thinner:NONE Imaging : mri 06/10/25 Cash Sales Audit Clerk Required: No Accompanied by: Self / Same As Patient Allergies No Known Allergies Allergy (Verified 06/16/25 10:49) HPI Comments Details: Michael is a pleasant male. He is a patient of Dr. Escudero. He seen for the following urologic conditions - elevated PSA Telemedicine Evaluation 15 min Consultation [employer] Stephanie Video Follow-up from prostate imaging Significant jump in PSA Recommend prostate MRI Has been doing renovation on house in [place] involving a lot of heavy digging Discussion with Michael and his . Given the suspicion for prostate cancer they would like to move ahead with a targeted biopsy. Risks and benefits discussed. Positive predictive value and negative predicted value discussed. Prostate MRI - Focus of abnormal signal intensity in the anterior aspect of the transitional zone 10mm PI-RADS 4 Elevated PSA Slow rise No reported family history - father had enlarged prostate PSA had declined with daily finasteride - however had libido issues 12/04 4.0, 06/03 4.6, 11/04 4.6 24%, 05/04 2.9, 11/05 4.2, 01/03 3.1, 05/06 9, 06/06 7.2 14% EndoDX 08/05 55 Imaging 40 g prostate Prostate Biopsy 10/05 - would prefer sedation if required [facility], [facility] Medical History Elevated PSA Hx of chronic kidney disease GERD (gastroesophageal reflux disease) BPH (benign prostatic hyperplasia) Hyperlipidemia Surgical History Hx of colonoscopy Hx of esophagogastroduodenoscopy History of left knee replacement History of hernia surgery Family History Mother Acute arthritis Father No problems noted. Social History Housing: House Alcohol intake: current Alcohol intake frequency: a few times a week Alcohol type: beer Patient Tobacco Use Status: Never used Tobacco Tobacco use type: Cigarette e-Cigarette/Vaping Use: Never Used Second Hand Smoke Exposure: No service: No Current occupational status: retired Cognitive needs: No Hearing needs: No Vision needs: Yes (Glasses) Review of Systems Const All systems reviewed & are unremarkable except as noted in HPI and below Reports no additional complaints Resp Reports no additional complaints GI Reports no additional complaints Reports as per HPI Musc Reports no additional complaints Physical Exam Telemedicine evaluation Appropriate responses Regular breathing rate and rhythm HEENT Head: Yes normal to inspection Ears: hearing grossly normal bilaterally Eyes General: appearance normal, both eyes and all related structures Neck Neck: Yes normal visual inspection Chest Chest palpation & inspection: normal inspection of the chest Resp Effort & Inspection: normal respiratory effort and able to speak in complete sentences Telehealth Telehealth Telehealth Platform: [employer] Location of provider rendering services: practice address Location of patient: address on file Patient Identification confirmed using: Name, : Yes Telehealth method: video Patient verbally consented to treatment: Yes Patient verbally consented to billing insurance company: Yes Patient informed of any privacy concerns related to visit: Yes Minutes spent on Phone/Video with Pt.: 15 Assessment & Plan Assessment & Plan (1) Elevated PSA: Code(s): R97.20 - Elevated prostate specific antigen [PSA] Category: Medical Plan Risks, benefits and alternatives to therapy were discussed. These include but are not limited to infection, bleeding, damage to local organs and tissues, need for further interventions. Anesthetic risks regarding cardiac arrhythmia, blood clots, and potential mortality were discussed. The patient understands the typical recovery time and the outpatient nature of the procedure. After consideration of these risks the patient gives full informed consent and they wish to move ahead with the procedure. - targeted fusion prostate biopsy Patient Instructions: This note is constructed using voice recognition software. While every effort has been made to ensure accuracy sanding machine tender automatic errors may have been included. Imaging studies, laboratory and physical exam results were discussed and reviewed in detail. No major barriers to patient understanding were identified. An opportunity to ask questions regarding the treatment plan was provided. All questions were answered. The patient expressed understanding and agreement with the above treatment plan. The patient is aware they should contact our office by phone for worsening of their current condition or the appearance of new urologic symptoms. Compliance is encouraged with any medications and followup testing that is ordered. It is a privilege to participate in the urologic care of your patient. If you have any questions or concerns regarding treatment for the above conditions, or other urologic issues, please do not hesitate to contact me. The office telephone contact is [phone]. Sincerely, Dr Parth Nova MD, [facility] - Urology Compassionate Specialist Care for the Genitourinary System Coding Level of Care Code Tele Est Pt Level 3 (77769) Complex EM visit Add On G2211 Diagnoses Elevated PSA R97.20
--- OUTSIDE RECORDS SUMMARY | 2025-06-16 12:23 | XMS_ITS | Patient Health Record ---
Author Organization [facility] Address [address] [place] [id number] Care Team Providers Care General Milling Superintendent Name Role Phone Kota ADEN, Hernesto Primary [...] Problem Status W/U Status Risk Notes Problem 543708779 Colon cancer screening (Z12.11) Active confirmed Problem 596294774 Personal history of colonic polyps (Z86.010) Active confirmed Problem 660118190 Gastroesophageal reflux disease without esophagitis (K21.9) Active confirmed Problem 72961850 Dysphagia, unspecified type (R13.10) Active confirmed Problem [id number] Schatzki's ring (K22.2) Active confirmed Plan Of [...] Date MEDICARE OF [place] [address] [place] [address] [id number] CHAVA RAMIREZ Self - patient is the insured [facility] [address] [place] [address] [id number] CHAVA RAMIREZ Self - patient is the [...]
--- OUTSIDE RECORDS SUMMARY | 2025-06-16 12:23 | XMS_ITS | Clinical Summary ---
Author Organization [facility] Facility Address [address] [address] Care Team Providers Care Semiautomatic Taper Operator Name Role Phone Nehemias Cantu MD Primary Care Provider Allergies No known active allergies Medications rosuvastatin [...] age to complete this topic Insurance Medicare [facility] Medicare [facility] Care Teams Semiautomatic Taper Operator Relationship Specialty Start Date End Date Nehemias Cantu MD [address] [place], [place] PCP - General 10/23/20
--- OUTSIDE RECORDS SUMMARY | 2025-06-16 12:23 | XMS_ITS | Clinical Summary ---
Author Organization [facility] Address [address] [place] [address] Phone Care Team Providers Care Cable Mock Up Assembler Name Role Phone Hernesto Escudero MD Primary Care Provider [phone] Social History Tobacco Use Types Packs/Day Years [...] this topic Medical Devices Not on file Procedures Procedure Name Priority Date/Time Associated Diagnosis Comments OUTSIDE LAB 06/15/2025 from Last 3 Months Results * Outside Lab (06/15/2025) us Scanning Interface Provider LAB BLOOD ORDERABLES Final Result from Last 3 Months Insurance [place] [id number] [facility] MEDICARE SUPPLEMENT MEDICARE PART A & B MEDICARE SUPPLEMENT MEDICARE PART A & B MEDICARE SUPPLEMENT MEDICARE PART A & B MEDICARE SUPPLEMENT MEDICARE PART A & B MEDICARE SUPPLEMENT MEDICARE PART A & B [facility] MEDICARE SUPPLEMENT MEDICARE PART A & B Member Subscriber Plan / Payer ( fective 2019-Present) Name:Oliver Narvaez Member ID:[id number] Relation to Subscriber:Self Name:Oliver Narvaez Subscriber ID:[id number] Payer ID:[id number] Group ID:Not on file Type:Medicare Address: [employer] [address] MEDICARE SUPPLEMENT MEDICARE PART A & B MEDICARE SUPPLEMENT MEDICARE PART A & B [facility] MEDICARE SUPPLEMENT Care Teams Cable Mock Up Assembler Relationship Specialty Start Date End Date Hernesto Escudero MD [address] [place] [address] [address] [place] [address] PCP - General Internal Medicine 12/27/20 Additional Source Comments The information contained in this document represents components of the legal health record. It is not the complete legal health record.[facility]
== END 2025-06-16 11:10 | disposition home or self-care (01) ==
LOC: HO.HUSH 10:46
PROVIDERS: PCP Internal Medicine; Visit Provider Urology
DX: R97.20 Elevated prostate specific antigen [PSA] (principal)
CPT/HCPCS: 99213; G2211

== ENCOUNTER 2025-08-08 08:32 | Day surgery (SDC) | payer MEDICARE, OTHER, SELFPAY ==
--- OUTSIDE RECORDS SUMMARY | 2025-07-12 12:15 | XMS_ITS | Clinical Summary ---
Author Organization [facility] Facility Address [address] [address] Care Team Providers Care Cabin Agent Name Role Phone Nehemias Cantu MD Primary Care Provider [phone] Allergies No known active allergies Medications rosuvastatin [...] age to complete this topic Insurance Medicare [facility] Medicare [facility] Care Teams Cabin Agent Relationship Specialty Start Date End Date Nehemias Cantu MD [address] [place], [place] PCP - General 10/23/20
--- OUTSIDE RECORDS SUMMARY | 2025-07-12 12:15 | XMS_ITS | Clinical Summary ---
Author Organization [facility] Address [address] [place] [address] Phone Care Team Providers Care Chemistry Laboratory Technician Name Role Phone Hernesto Escudero MD Primary Care Provider [phone] Social History Tobacco Use Types Packs/Day Years [...] Insurance [place] PART [place] [id number] [facility] MEDICARE SUPPLEMENT MEDICARE PART A & B MEDICARE SUPPLEMENT MEDICARE PART A & B MEDICARE SUPPLEMENT MEDICARE PART A & B MEDICARE SUPPLEMENT MEDICARE PART A & B MEDICARE SUPPLEMENT MEDICARE PART A & B [facility] MEDICARE SUPPLEMENT MEDICARE PART A & B Member Subscriber Plan / Payer ( fective 2019-Present) Name:Oliver Narvaez Member ID:[id number] Relation to Subscriber:Self Name:Oliver Narvaez Subscriber ID:[id number] Payer ID:[id number] Group ID:Not on file Type:Medicare Address: [employer] [address] MEDICARE SUPPLEMENT MEDICARE PART A & B MEDICARE SUPPLEMENT MEDICARE PART A & B [facility] [place] MEDICARE SUPPLEMENT Care Teams Chemistry Laboratory Technician Relationship Specialty Start Date End Date Hernesto Escudero MD [address] [place] [address] [address] [place] [address] PCP - General Internal Medicine 12/27/20 Additional Source Comments The information contained in this document represents components of the legal health record. It is not the complete legal health record.[facility]
--- OUTSIDE RECORDS SUMMARY | 2025-07-12 12:15 | XMS_ITS | Patient Health Record ---
Author Organization [facility] Address [address] [place] [address] Care Team Providers Care Proof Machine Operator Supervisor Name Role Phone Kota ADEN, Hernesto Primary [...] Problem Status W/U Status Risk Notes Problem [id number] Colon cancer screening (Z12.11) Active confirmed Problem 637860718 Personal history of colonic polyps (Z86.010) Active confirmed Problem 273634573 Gastroesophageal reflux disease without esophagitis (K21.9) Active confirmed Problem 29443915 Dysphagia, unspecified type (R13.10) Active confirmed Problem 275232941 Schatzki's ring (K22.2) Active confirmed Plan Of [...] Date MEDICARE OF [place] [address] [facility] [place] [address] [id number] CHAVA RAMIREZ Self - patient is the insured [facility] [address] [place] [address] [phone] [id number] CHAVA RAMIREZ Self - patient is the [...]
--- NOTE | 2025-08-03 14:22 | HO.ANESPROP2 ---
Documented by User: Edilia Mesa NP 08/03/25 14:22 HPI - Anesthesia Eval Consult details Narrative: 70 yr old male for ?Targeted Prostate Needle Biopsy PMFSH Active Problems Active Problems: All Active Problems GERD (gastroesophageal reflux disease) (Acute) Viral upper respiratory illness (Acute) Elevated PSA (Acute) Discomfort of right ear (Acute) Nocturia (Acute) BPH (benign prostatic hyperplasia) (Acute) Hyperlipidemia (Acute) Past Medical History Medical History (Updated 06/20/25 @ 05:56 by Vincent Rahman MD) Elevated PSA Hx of chronic kidney disease GERD (gastroesophageal reflux disease) BPH (benign prostatic hyperplasia) Hyperlipidemia Family History Family History Mother Acute arthritis Father No problems noted. Family history of problems with anesthesia: No Surgical History Surgical History Hx of colonoscopy Hx of esophagogastroduodenoscopy History of left knee replacement History of hernia surgery History of Problems with Anesthesia: No Social History Social History Housing: House Are you a primary healthcare translator to a significant other at home: No Do you presently have visiting nurse or other home services: No Alcohol intake: current Alcohol intake frequency: holidays/special occasions only Alcohol type: beer Patient Tobacco Use Status: Never used Tobacco Tobacco use type: Cigarette e-Cigarette/Vaping Use: Never Used Second Hand Smoke Exposure: No Use of substances other than those prescribed or required for medical reasons: No Have you been hit, kicked, punched, or otherwise hurt by someone within the past year? If so, by whom?: No Are you DNR?: No Advance Directives: No Advance Directives Information Provided: Yes Advance Directives on File: No service: No Current occupational status: retired Cognitive needs: No Hearing needs: No Vision needs: Yes (Glasses) Meds Allergies Allergy/AdvReac Type Severity Reaction Status Date / Time No Known Allergies Allergy Verified 06/16/25 10:49 Home Medications ?Medication ?Instructions ?Recorded ?Confirmed ?Last Taken ?Type sodium fluoride 1.1 %-potassium PO Q3D 02/14/23 06/14/25 Unknown History nitrate 5 % dental paste magnesium citrate,mag oxide 250 mg 250 mg PO DAILY 06/14/25 06/14/25 Unknown History capsule Assessment and Plan Final Anesthetic Review Family History of Problems with Anesthesia: No History of Problems with Anesthesia: No Documented by User: Óscar Isidro MD 08/08/25 10:09 [facility] Past Medical History Medical History (Updated 06/20/25 @ 05:56 by Vincent Rahman MD) Elevated PSA Hx of chronic kidney disease GERD (gastroesophageal reflux disease) BPH (benign prostatic hyperplasia) Hyperlipidemia Family History Family History Mother Acute arthritis Father No problems noted. Surgical History Surgical History Hx of colonoscopy Hx of esophagogastroduodenoscopy History of left knee replacement History of hernia surgery Social History Social History Housing: House Are you a primary healthcare translator to a significant other at home: No Do you presently have visiting nurse or other home services: No Alcohol intake: current Alcohol intake frequency: holidays/special occasions only Alcohol type: beer Patient Tobacco Use Status: Never used Tobacco Tobacco use type: Cigarette e-Cigarette/Vaping Use: Never Used Second Hand Smoke Exposure: No Use of substances other than those prescribed or required for medical reasons: No Have you been hit, kicked, punched, or otherwise hurt by someone within the past year? If so, by whom?: No Are you DNR?: No Advance Directives: No Advance Directives Information Provided: Yes Advance Directives on File: No service: No Current occupational status: retired Cognitive needs: No Hearing needs: No Vision needs: Yes (Glasses) Meds Allergies Allergy/AdvReac Type Severity Reaction Status Date / Time No Known Allergies Allergy Verified 06/16/25 10:49 Home Medications ?Medication ?Instructions ?Recorded ?Confirmed ?Last Taken ?Type sodium fluoride 1.1 %-potassium PO Q3D 02/14/23 06/14/25 Unknown History nitrate 5 % dental paste magnesium citrate,mag oxide 250 mg 250 mg PO DAILY 06/14/25 06/14/25 Unknown History capsule Assessment and Plan Assessment Anesthesia Assessment: Anesthesia Plan Discussed Final Anesthetic Review NPO: Yes ASA Class: II Final Preanesthetic Review: No Changes in Pt Med Stat, Meds/Allgs Chart Reviewed, Consent Obtained/Reviewed and Anes Risks/Benef Reviewed Patient Risk: Low Procedure Risk: Low Anesthetic Plan Anesthetic Plan: GA Disposition: Standard PACU
[2025-08-04 08:30] VITALS: BMI 23.0
[2025-08-08 08:55] VITALS: BP 161/85; PULSE 59; RESP 16; TEMP 36.4; O2SAT 99
[2025-08-08] MEDS: Lactated Ringers 1,000 ML 100 ML IVCONT (08:58)
--- NOTE | 2025-08-08 10:38 | MHC.SHP ---
Pre-Procedural Eval Section A - 24 Hr Update-Section A only Date of Service: 08/08/25 The patient is an INPATIENT: No Changes since office visit: No Cold of Flu in the past 2 weeks, No New Medical Problems, No Changes in Medication and No Patient answered all questions The patient has been examined within 24 hours of the surgical procedure. The History & Physical has been completed within 30 days and I have reviewed it.: Yes Section B - Complete if H&P > 30 days Chief Complaint: Elevated prostate specific antigen [PSA] Details of Present Illness: Perineal stereotactic saturation prostate biopsy Allergies: Allergies Allergy/AdvReac Type Severity Reaction Status Date / Time No Known Allergies Allergy Verified 06/16/25 10:49 Review of Systems Sugical H&P ROS: Negative: Constitution, Cardiovascular, Respiratory, Neurological, Psychiatric, Hem-Onc, Allergic/Immunologic, Gastrointestinal, Genitourinary, Musculoskeletal, Integumentary, Endocrine and Eyes/Ears/Nose/Throat Exam Surgical H&P Exam: Normal: HEENT, Normal: Heart, Normal: Lungs, Normal: Extremities, Normal: Abdomen, Normal: Skin and Normal: Neurological Plan Diagnosis/Plan: Unchanged I have reviewed the history and physical and performed a pertinent physical examination on my patient. No changes have occurred unless specified. Time Spent With Patient Time: Total time managing care of this patient today ____ minutes.
--- NOTE | 2025-08-08 11:16 | W.PM.OPN ---
Operative Note Operative Note Date of Service: 08/08/25 Narrative: Preoperative diagnosis: Elevated PSA Postoperative diagnosis: Elevated PSA Procedure: 1. transrectal ultrasound-guided pudendal nerve block 2. Prostate Ultrasound image acquisition, registration and 3D model creation 3. Prostate MRI Model and Target fusion with intraoperative prostate ultrasound 3. Transperineal Ultrasound Guided Sterotactic prostate biopsy including saturation biopsy of MRI identified targeted prostate lesions Surgeon: Dr. Parth Nova Anesthetic: Sedation plus local Indications for procedure: Elevated PSA 8.4 - MRI - 10 mm lesion anterior transition zone mid gland PI-RADS 4. 45 g. Procedure: After informed consent was verified, the patient was brought into the procedure area. Patient identity confirmed. Perioperative antibiotics confirmed. Safety pause time out performed. Anesthesia performed per protocol. Scrotum taped out of operative area. Iodine prep used. Perineal injection of local anesthetic. Digital guided prostate pudendal nerve block performed with 10 cc of 1% lidocaine. 5cc each side. Ultrasound probe was placed per rectum. Ultrasound probe stabilized on a prostate stepper with attached perineal sterotactic targeting grid with 5mm interval holes. Perineal targeting grid A-C covering right prostate and c-F covering left prostate. Numbers 1.0-2.5 covering posterior prostate and 2.5-4.0 covering anterior prostate. [employer] software and hardware platform was used for prostate ultrasound image acquisition, ultrasound image registration, 3D model creation and MRI-US fusion image overlay. Ultrasound placement was made with external grid calibration for height and prostate diameter in both the transverse and longitudinal planes. Prostate was aligned midline and reviewed for transverse and sagittal positioning. The bottom of the prostate was aligned with the 1.0 horizontal positioning on the guidance grid. Once perineal grid calibration was confirmed prostate ultrasound data acquisition was performed with ultrasound sweeping in a transverse fashion. Images were acquired moving from prostate base to apex. This was performed in an even fashion with approx 0.5cm extra length at base and apex. The acquired ultrasound images were then registered to create 3D model boundaries in the operating room. [place] markers were applied to ultrasound images in transverse and longitudinal sterotactic fashion. [place] and base were marked first followed by conformational boundaries. A three dimensional sterotactic ultrasound model was created using [employer] software. The model was reviewed against acquired ultrasound images and perineal grid alignment was performed. The planned perineal needle sterotactic targeting, based on prior acquisition of MRI imaging, was overlaid on the ultrasound 3D images and targets confirmed through ultrasound review. Adjustments were then made between real time and projected model targeting locations. Based on pre-planning evaluation 14 targets had been identified. Targets have been identified according to template grid positions. Modelled taget locations are reviewed in real time for 3D mapping of location. These included 10 mm anterior transition zone mid gland PI-RADS 4 lesion identified on MRI - 3 biopsies to be performed to saturate area. Biopsies were performed moving from far left lateral inferior to far right lateral inferior. Non-target biopsies were distributed evenly between left and right prostate lobes. Sterotactic targeting of biopsy needle location was confirmed in real time with longitudinal US prior to biopsy needle firing. Cognitive adjustments to preplanned positions were made as necessary to ensure samples were taken from planned prostate areas particularly regarding depth of biopsy with respect to prostate apex and base. Saturation biopsy was performed on targeted lesions. Biopsy number was dependent on prostate lesion size. Upon biopsy completion probe was removed from the rectum. The patient tolerated the procedure well and was transferred to stable condition in the PACU. Printed instructions regarding antibiotic use and common side effects such as low-grade temperature, potential infection and bleeding were given Pathology: 14 prostate biopsy - 3 from target lesion, 11 general CPT 51512 Modifier 22 for complexity of procedure execution (Saturation Perineal prostate biopsy) CPT code 48118: Transrectal ultrasound; this is a diagnostic test for evaluation of the prostate and surrounding structures, looking for abnormalities or suspicious areas worrisome for cancer CPT code 84653: Ultrasonic guidance for needle placement (eg, biopsy, aspiration, injection, localization device), imaging supervision and interpretation CPT 57139: 3D rendering with interpretation and reporting of computed tomography (CT), MRI, ultrasound, or other tomographic modality with image postprocessing under concurrent supervision; not requiring image postprocessing on an independent workstation
[2025-08-08 11:33] VITALS: BP 140/79; PULSE 77; RESP 17; TEMP 36.3; O2SAT 98
[2025-08-08 11:35] VITALS: BP 131/65; PULSE 73; RESP 16; O2SAT 98
[2025-08-08 11:40] VITALS: BP 124/71; PULSE 72; RESP 16; O2SAT 96
[2025-08-08 11:45] VITALS: BP 120/75; PULSE 81; RESP 16; O2SAT 95
[2025-08-08 12:00] VITALS: BP 128/80; PULSE 72; RESP 16; TEMP 36.1; O2SAT 95
== END 2025-08-08 12:18 | disposition home or self-care (01) ==
PROVIDERS: PCP Internal Medicine; Visit Provider Urology
PROC: (CPT 55700; principal; 2025-08-08 10:40)
DX: C61 Malignant neoplasm of prostate (principal); R97.20 Elevated prostate specific antigen [PSA]; N40.1 Benign prostatic hyperplasia with lower urinary tract symptoms; R35.1 Nocturia; K21.9 Gastro-esophageal reflux disease without esophagitis; E78.5 Hyperlipidemia, unspecified; Z87.448 Personal history of other diseases of urinary system; N18.9 Chronic kidney disease, unspecified; Z79.899 Other long term (current) drug therapy; Z98.890 Other specified postprocedural states; Z96.652 Presence of left artificial knee joint
CPT/HCPCS: 55706; 88305; 88344; J0131; J1596; J2003; J2250; J2405; J2704; J3010

== ENCOUNTER → 2025-08-08 08:32 | Outpatient (BNV) | payer MEDICARE, OTHER, SELFPAY | PROVIDERS: PCP Internal Medicine; Visit Provider Urology | DX: R97.20 Elevated prostate specific antigen [PSA] (principal) | CPT/HCPCS: 55706 ==

== ENCOUNTER 2025-08-17 09:40 | Outpatient (AMB) | payer MEDICARE, OTHER, SELFPAY ==
--- NOTE | 2025-08-17 09:43 | MHC.OFFVIS ---
Intake Visit Reasons: Prostate biopsy results Intake Note: Patient is present for Prostate Biopsy Results Urology Med: None Antibiotic Allergy: None Blood Thinner: None PVR: 0ml Newspaper Editor Required: No Allergies No Known Allergies Allergy (Verified 08/17/25 09:45) HPI Comments Details: Michael is a pleasant male. He is a patient of Dr. Escudero. He seen for the following urologic conditions - elevated PSA Follow-up from targeted prostate biopsy Accompanied by his daughter Does have low volume low-grade prostate cancer Plan genetics Start finasteride He also has concerns about right shoulder pain. Given his baseline renal function can trial 30 days 100 mg Celebrex 06/06 Prostate MRI - Focus of abnormal signal intensity in the anterior aspect of the transitional zone 10mm PI-RADS 4 Prostate Cancer grade group 1, low volume, organ confined Histologic type: Acinar adenocarcinoma Histologic grade: 3+3=6 Charles score: 3+3=6 Grade group: 1 Tumor quantitation: Number cores positive: 3 Total number of cores: 14 % of tissue involved: See above for details Periprostatic fat inv.: Not identified Seminal vesicle inv.: Not identified Perineural inv.: Not identified LVI: Not identified Elevated PSA Slow rise No reported family history - father had enlarged prostate PSA had declined with daily finasteride - however had libido issues 12/04 4.0, 06/03 4.6, 11/04 4.6 24%, 05/04 2.9, 11/05 4.2, 01/03 3.1, 05/06 9, 06/06 7.2 14% EndoDX 08/05 55 Imaging 40 g prostate Prostate Biopsy 10/05 - would prefer sedation if required [facility] Medical History Elevated PSA Hx of chronic kidney disease GERD (gastroesophageal reflux disease) BPH (benign prostatic hyperplasia) Hyperlipidemia Surgical History Hx of colonoscopy Hx of esophagogastroduodenoscopy History of left knee replacement History of hernia surgery Family History Mother Acute arthritis Father No problems noted. Social History Housing: House Are you a primary patient care representative to a significant other at home: No Do you presently have visiting nurse or other home services: No Alcohol intake: current Alcohol intake frequency: holidays/special occasions only Alcohol type: beer Patient Tobacco Use Status: Never used Tobacco Tobacco use type: Cigarette e-Cigarette/Vaping Use: Never Used Second Hand Smoke Exposure: No service: No Current occupational status: retired Cognitive needs: No Hearing needs: No Vision needs: Yes (Glasses) Review of Systems Const Denies chills and Denies fever(s) Card Reports no additional complaints and Denies syncope Resp Denies cough GI Denies abdominal pain and Denies heartburn Reports as per HPI and Denies change in libido Neuro Denies syncope Psych Denies change in libido Endo Denies change in libido Physical Exam Const General: cooperative, healthy appearing, comfortable and no acute distress Orientation/consciousness: patient oriented x3 HEENT Face and sinus: Yes normal facial exam Mouth: moist mucous membranes Neck Neck: Yes normal visual inspection, Yes full ROM and Yes trachea midline Chest Chest palpation & inspection: normal inspection of the chest Resp Effort & Inspection: normal respiratory effort, able to speak in complete sentences and no respiratory distress GI Inspection: Yes normal to inspection Back/Spine/Pelvis Cervical Spine: normal cervical lordosis Thoracic/Lumbar Spine: thoracic and lumbar spine normal to inspection Skin General skin exam: no rashes or lesions noted Neuro General: patient oriented x3, gait normal, tone normal and moves all extremities Extrem General: Yes normal to inspection and Yes capillary refill normal Office Procedures Post Void Residual Post Residual Void Post Void Residual (PVR): 0 16916-Rdra Void Residual by ultrasound Assessment & Plan Assessment & Plan (1) Hormone sensitive prostate cancer: Code(s): C61 - Malignant neoplasm of prostate; Z19.1 - Hormone sensitive malignancy status Category: Medical Plan Complete evaluation with CalAmp Start finasteride Four month follow-up check PSA Orders: Orders AMB Post Void Residual by ultrasound Today N40.0 - Benign prostatic hyperplasia without lower urinary tract symptoms Medications: New finasteride 5 mg PO DAILY 90 tabs 1RF 90 days C61 - Malignant neoplasm of prostate, Z19.1 - Hormone sensitive malignancy status celecoxib 100 mg PO DAILY 30 caps 0RF 30 days C61 - Malignant neoplasm of prostate, Z19.1 - Hormone sensitive malignancy status Patient Instructions: This note is constructed using voice recognition software. While every effort has been made to ensure accuracy structural test engineer errors may have been included. Imaging studies, laboratory and physical exam results were discussed and reviewed in detail. No major barriers to patient understanding were identified. An opportunity to ask questions regarding the treatment plan was provided. All questions were answered. The patient expressed understanding and agreement with the above treatment plan. The patient is aware they should contact our office by phone for worsening of their current condition or the appearance of new urologic symptoms. Compliance is encouraged with any medications and followup testing that is ordered. It is a privilege to participate in the urologic care of your patient. If you have any questions or concerns regarding treatment for the above conditions, or other urologic issues, please do not hesitate to contact me. The office telephone contact is [phone]. Sincerely, Dr Parth Nova MD, [facility] - Urology Compassionate Specialist Care for the Genitourinary System Coding Level of Care Code Est Pt Level 4 (22139) Complex EM visit Add On G2211 Diagnoses Hormone sensitive prostate cancer C61; Z19.1 CPT Codes Post Residual Void - PVR CPT Code: 64181-Tcrv Void Residual by ultrasound ([id number])
--- OUTSIDE RECORDS SUMMARY | 2025-08-17 10:50 | XMS_ITS | Clinical Summary ---
Author Organization [facility] Address [address] [place] [address] Phone Care Team Providers Care Paraoptometric Name Role Phone Hernesto Escudero MD Primary Care Provider [phone] Social History Tobacco Use Types Packs/Day Years [...] (06/15/2025) us Scanning Interface Provider LAB BLOOD BKR ORDERA BLES Final Result from Last 3 Months Insurance MEDICARE PART A & B [facility] MEDICARE SUPPLEMENT MEDICARE PART A & B MEDICARE SUPPLEMENT MEDICARE PART A & B MEDICARE SUPPLEMENT MEDICARE PART A & B MEDICARE SUPPLEMENT MEDICARE PART A & B MEDICARE SUPPLEMENT MEDICARE PART A & B [facility] MEDICARE SUPPLEMENT MEDICARE PART A & B Member Subscriber Plan / Payer ( fective 2019-Present) Name:Oliver Narvaez Member ID:[id number] Relation to Subscriber:Self Name:Oliver Narvaez Subscriber ID:[id number] Payer ID:[id number] Group ID:Not on file Type:Medicare Address: [employer] [address] MEDICARE SUPPLEMENT MEDICARE PART A & B MEDICARE SUPPLEMENT MEDICARE PART A & B [facility] MEDICARE SUPPLEMENT Care Teams Paraoptometric Relationship Specialty Start Date End Date Hernesto Escudero MD [address] [place] [address] [address] [place] [address] PCP - General Internal Medicine 12/27/20 Additional Source Comments The information contained in this document represents components of the legal health record. It is not the complete legal health record.[facility]
--- OUTSIDE RECORDS SUMMARY | 2025-08-17 10:50 | XMS_ITS | Clinical Summary ---
Author Organization [facility] Address [address] [address] Care Team Providers Care Production Checker Name Role Phone Nehemias Cantu MD Primary Care Provider [phone] Allergies No known active allergies Medications rosuvastatin [...] age to complete this topic Insurance Medicare Member Subscriber Plan / Payer (Ef fective 2019-Present) Name:Oliver Narvaez Member ID:[id number] Relation to Subscriber:Self Name:Oliver Narvaez Subscriber ID:[id number] Payer ID:Not on file Group ID:Not on file Type:Not on file Address: [address] [address] [facility] Medicare Member Subscriber Plan / Payer (Ef fective 2019-Present) Name:Oliver Narvaez Member ID:[id number] Relation to Subscriber:Self Name:Oliver Narvaez Subscriber ID:[id number] Payer ID:Not on file Group ID:Not on file Type:Not on file Address: [address] [address] [facility] Care Teams Production Checker Relationship Specialty Start Date End Date Nehemias Cantu MD [address] [place], [place] PCP - General 10/23/20
--- OUTSIDE RECORDS SUMMARY | 2025-08-17 10:50 | XMS_ITS | Patient Health Record ---
Author Organization [facility] Address [address] [place] [address] Care Team Providers Care Account Development Executive Name Role Phone Kota ADEN, Hernesto Primary Care Provider Unavaila Tae Chicas Jr Unavailable Allergies No Known Allergies Reason For Referral No Information Medications Medication SIG (Take, Route, Frequency, Duration) Notes Start Date End Date Status Atorvastatin Calcium 10 MG 1 tablet Oral ly Once a day Active Omeprazole 20 MG 1 capsule Orally Onc e a day; Duration: 90 days Active MiraLax (colon prep) 17 GM/SCOOP mixed with Gatorade or Crystal Light Orally begin at 5:00 p.m. the day before the procedure; Duration: 1 day 09/11/2022 Active Immunizations Vaccine Route [...] Problem Status W/U Status Risk Notes Problem Colon cancer screening (438425989) Colon cancer screening (Z12.11) Active confirmed Problem History of polyp of colon (situation) (278863407) Personal history of colonic polyps (Z86.010) Active confirmed Problem Gastroesophageal reflux disease without esophagitis (550966038) Gastroesophageal reflux disease without esophagitis (K21.9) Active confirmed Problem Dysphagia (75503393) Dysphagia, unspecified type (R13.10) Active confirmed Problem Schatzki's ring (62589172) Schatzki's ring (K22.2) Active confirmed Plan Of [...] Date MEDICARE OF [place] [address] [place] [address] [id number] CHAVA RAMIREZ Self - patient is the insured [facility] [address] [place] [phone] [id number] CHAVA RAMIREZ Self - patient is the [...]
--- OUTSIDE RECORDS SUMMARY | 2025-08-17 10:50 | XMS_ITS | Data Portability ---
Author Organization [facility], [facility] Address [address] [place] [address] Care Team Providers Care Spike Maker Name Role Phone CONCHITA BROWN Primary Care Provider Assessment No assessment recorded. Plan of Treatment Reminders Order Date Submit Date Provider Last Modified By Organization Details Last Modified Time Details Appointments None record ed. Lab None record ed. Referral None record ed. Procedures None record ed. Surgeries None record ed. Imaging XR, should er, 2 or more view 025 05/24/20 25 [email or web address] [facility] Office, [address] [facility] [address], [place], [address], 5 17:20:45 Medication Orders None record ed. Patient TargetsNo targets recorded. Patient InstructionsNo instructions recorded. Reason for Referral None Reported. Problems Name Problem SNOMED Code Status Onset Date Resolution Date Notes Provider Name and Address Organization Details Recorded Time Idiopathic osteoarthri tis 888804199 Active 2019 Problem Code: M17.12; Problem Code Type: ICD-10; Status: 'A'; Not Available [facility] 4 11:57:51 Problem Notes None recorded. Procedures Surgical History Date Name Laterality Status Provider Name and Address Organization Details Recorded Time 5 Sports Shoulder completed Severiano Rodriguez MD [address] [facility] [address] [address], [place], [address], [facility] 05/24/2025 20:26:39 Imaging Results None recorded. Procedure Notes None recorded. Medical Equipment None Reported. Allergies No known drug allergies Medications Name Sig Start Date Stop Date Status Note LastModified by Organization Details LastModified Time famotidine 20 mg tablet TAKE 1 TABLET BY MOUTH EVERY DAY active Not Available Not Available No t Available levofloxaci n 500 mg tablet TAKE 1 TABLET BY MOUTH DAILY FOR 3 DAYS DAY BEFORE , DAY OF , AND AFTER PROCEDURE 05/10 completed Not Available Not Available Not Available finasteride 5 mg tablet TAKE 1 TABLET BY MOUTH AT BEDTIME FOR 90 DAYS active Not Available Not Available No t Available rosuvastati n 10 mg tablet TAKE 1 TABLET BY MOUTH EVERY DAY AT BEDTIME active Not Available Not Available No t Available Sodium Fluoride 5000 Dry Mouth 1.1 % dental paste PLEASE SEE ATTACHED FOR DETAILED DIRECTION S active Not Available Not Available No t Available Vitals Date Recorded Body height Body mass index (BMI) Body weight Provider Name and Address Organization Details Last Updated DateTime 05/24/2025 180.34 cm 23.7 kg/m2 06314.7 g Yamile smith [place] [facility] 05/24/2025 10:21:10 Social History None recorded. Functional Status None recorded. Mental Status None recorded. Family History Nothing Reported. Medical History Condition Response Coronary Artery Disease N Anxiety/Depression N Emphysema N COPD N Pacemaker N Vascular Disease N Heart Trouble N Gastrointestinal Disease N Autoimmune disease N Inflammatory Joint disease N Orthotics N Arthritis N Blood Clot N Acid Reflux (GERD) N Cancer N Stroke N Circulation Problems N Rheumatoid Arthritis N Arrhythmia N Headaches N Fibromyalgia N Allergies/Hayfever N Breathing or lung disorders N Nerve Disorders N Thyroid Problems N Kidney/Bladder Problems N Anemia N Heart Attack (SD) N Cholesterol Y Diabetes N Bleeding Disorder N Seizures/Epilepsy N AIDS/HIV N Congestive Heart Failure (CHF) N Asthma N Peripheral Vascular Disease N Sleep Apnea N Hepatitis N Heart Disease N Pulmonary Embolism N Hypertension N Osteoporosis N Past Encounters Encounter ID Performer Location Encounter Start Date Encounter Closed Date Diagnosis/Indication Diagnosis SNOMED-CT Code Diagnosis ICD10 Code Diagnosis IMO Codes Diagnosis Note [id number] Severiano Rodriguez MD [facility] [address] [place] [address] 05/24/2025 10:07:36 06/09/2025 11:24:13 Pain of right shoulder joint [id number] 0748368 M25.511 325701 Health Concerns Section Related Observation LastModified by Organization Detai ls LastModified Time None Recorded Concern Status LastModified by Organization Details LastModified Time None Recorded Advance Directives Directive None Recorded Payers Insurance Date Sequence Insurance Name Policy Number Policy Nevarez Covered Member ID Nevarez Member ID Guarantor Name 05/24/2025 1 [place]: [employer] Oliver Narvaez [id number] Oliver Narvaez 06/09/2025 2 [facility] - PLAN 1 (MEDICARE SUPPLEMENT) [id number] Oliver Narvaez [id number] Oliver Narvaez 05/13/2025 1 [facility] (MEDICARE REPLACEMENT/ ADVANTAGE - PPO) [id number] Oliver Narvaez [id number] Oliver Adamei Notes Date Note Type Note Provider Name and Address Organization Details Recorded Time 05/24/2025 text/html CC: Right shoulder pain HPI: Patient is a 69-year-old male here today for chief complaint of right shoulder pain. Reports symptoms have been present for 3 months. No specific injury history. He has been renovating a deck over summer and thinks this likely contributed to some of his symptoms. Reports he is normally very active throughout the day. Pain is aggravated with overhead motion and lifting. He had a steroid injection for his shoulder several years ago which was helpful. He was told he had a partial rotator cuff tear at that time. Past family, medical, social history and review of systems has been reviewed, updated and is located in the patient's chart. SIDE: RightGENERAL: Appears comfortable.INSPECTI ON: No muscle atrophy. Normal deltoid contour. No shoulder rounding/scapular protractionPALPATION : No AC joint tenderness. No Bicipital Groove tendernessNECK EXAM: Full flexion and extension. Negative Spurling s UPPER EXTREMITY NEUROVASCULAR EXAM: No motor or sensory deficitsACTIVE/PASSI VE ROM: Forward elevation 180 degrees, External rotation 70 degrees, Internal rotation T12. Moderate pain irritability through range of motionROTATOR CUFF TESTING: Supraspinatus strength testin /5. Infraspinatus strength testin /5. Subscapularis Strength Testin/5NEER: PositiveHAWKINS: PositiveOBRIEN: PositiveANTERIOR/POS TERIOR LOAD AND SHIFT: NegativeSULCUS: Negative CONTRALATERAL SIDE:ROM full, 5/5 strength, No atrophy. No evidence of instability of the shoulder. Negative impingement signs. Negative AC joint tenderness. Negative Speed's, Negative O'Briens, Negative Bryan. X-rays 4 views ordered, obtained, and personally reviewed today AP, Grashey, scapular Y, axillary views right shoulder demonstrate: Glenohumeral joint space preserved. AC joint space preserved with chronic appearing calcifications superior to the AC joint. Type II acromion. There is additional calcification subacromial space at the posterior aspect of the humeral head. Impression: Right shoulder pain-findings consistent with rotator cuff tear versus impingement Plan: Reviewed diagnosis and treatment options with the patient today discussed various conservative options including anti-inflammatories, injections, home exercises, PT. Given moderate weakness on examination today we discussed possibility for rotator cuff tear and option to obtain MRI. Does report he was been diagnosed with partial rotator cuff tear years ago and responded well to corticosteroid injection. After reviewing options today patient elected for corticosteroid injection and home exercise program. He will call if persistent symptoms to schedule follow-up evaluation. All questions answered today. Severiano Rodriguez MD [address] [place] [address] [address], [place], [address], [facility] - [facility] 05/24/2025 20:28:12
== END 2025-08-17 10:29 | disposition home or self-care (01) ==
LOC: HO.HUSH 09:41
PROVIDERS: PCP Internal Medicine; Visit Provider Urology
DX: C61 Malignant neoplasm of prostate (principal); Z19.1 Hormone sensitive malignancy status
CPT/HCPCS: 99024

== ENCOUNTER → 2025-08-17 09:40 | Outpatient (BNVA) | payer MEDICARE, OTHER, SELFPAY | PROVIDERS: PCP Internal Medicine; Visit Provider Urology | DX: R97.20 Elevated prostate specific antigen [PSA] (principal); N40.0 Benign prostatic hyperplasia without lower urinary tract symptoms; C61 Malignant neoplasm of prostate; Z19.1 Hormone sensitive malignancy status | CPT/HCPCS: 51798; 99212 ==